=== PATIENT | female | born 1935 | race Caucasian/White ===

== ENCOUNTER 2020-12-28 13:39 | Inpatient (IN) | payer MEDICARE, OTHER ==
[~2020-12-28] VITALS: Ht 154.9 cm; Wt 104.0 kg
[~2020-12-28 13:39] MED LIST: BYSTOLIC; CEFD300C3 PO; DEXL60CA5 PO; INDO50CA PO; NABUMETONE; SPIR25TA3 PO
[2020-12-28] MEDS ORDERED: CALCIUM CARBONATE 500 MG (TUMS) TAB.CHEW PO PRN (14:15)
[2020-12-28] MEDS ORDERED: DOCUSATE SODIUM 100 MG (COLACE) CAP PO PRN (14:15)
[2020-12-28] MEDS ORDERED: diphenhydrAMINE 25 MG TAB (BENADRYL) PO PRN (14:15)
[2020-12-28] MEDS ORDERED: ACETAMINOPHEN 500 MG TAB (TYLENOL) PO PRN (14:15)
[2020-12-28] MEDS ORDERED: HYDROcodone/APAP 5 MG/325 MG (LORTAB) TAB PO PRN (14:15)
[2020-12-28] MEDS ORDERED: ONDANSETRON 4 MG/2 ML (SDV) Z0FRAN IVP PRN (14:15)
[2020-12-28] MEDS ORDERED: MELATONIN 3 MG TABLET PO PRN (14:15)
[2020-12-28] MEDS ORDERED: LOPERAMIDE 2 MG (IMODIUM) TABLET PO PRN (14:15)
[2020-12-28] MEDS ORDERED: dilTIAZem DRIP PRE-MIX 125 ML IV ONE (15:09)
[2020-12-28] MEDS ORDERED: ACETAMINOPHEN 325 MG TABLET PO PRN (15:15)
[2020-12-28] MEDS: dilTIAZem DRIP PRE-MIX 125 ML IV SCH (15:20)
[2020-12-28] MEDS: NS IV 1000 ML 1,000 ML IV SCH (15:23)
--- NOTE | 2020-12-28 15:46 | Diagnostic Imaging Report ---
INDICATION: Fever. EXAMINATION: Portable chest at 3:32 PM. Heart size and pulmonary vascularity are normal. Lungs are clear. There are no effusions or pneumothoraces. IMPRESSION: No acute abnormalities in the chest. Dictated by: Dictated on workstation # [id number]
[2020-12-28] MEDS ORDERED: RIVA20TA PO (16:05)
[2020-12-28] MEDS ORDERED: METO50TA7 PO (16:05)
[2020-12-28] MEDS ORDERED: DEXL60CA PO (16:05)
[2020-12-28] MEDS ORDERED: FERR-74 PO (16:05)
[2020-12-28] MEDS ORDERED: TORS20TA3 PO (16:05)
[2020-12-28] MEDS ORDERED: NITR0.3T7 SL (16:05)
[2020-12-28] MEDS ORDERED: LISI40TA9 PO (16:05)
[2020-12-28] MEDS ORDERED: ASPI-999 PO (16:05)
[2020-12-28 16:13] LABS: BASOPHILS % (AUTO) 0 % (0-10); EOSINOPHILS % (AUTO) 0 % (0-10); HEMATOCRIT 25 % (35-52); HEMOGLOBIN 7.4 g/dL (11.5-16.0); LYMPHOCYTES # (AUTO) 0.9 10^3/uL (1.0-4.0); LYMPHOCYTES % (AUTO) 7 % (12-44); MEAN CORPUSCULAR HEMOGLOBIN 27 pg (25-34); MEAN CORPUSCULAR HGB CONC 30 g/dL (32-36); MEAN CORPUSCULAR VOLUME 91 fL (80-99); MEAN PLATELET VOLUME 9.1 fL (9.0-12.2); MONOCYTES # (AUTO) 0.7 10^3/uL (0.0-1.0); MONOCYTES % (AUTO) 6 % (0-12); NEUTROPHILS # (AUTO) 11.2 10^3/uL (1.8-7.8); NEUTROPHILS % (AUTO) 86 % (42-75); PLATELET COUNT 376 10^3/uL (130-400)
--- NOTE | 2020-12-28 16:21 | History & Physical-Hospitalist ---
FORTINO JOHNSON MED STUDENT 12/28/20 1621: History of Present Illness HPI/Chief Complaint Sydni Wade is an 84 y.o. F with history of complicated GI history, PA with stents x2 (2014), and near-continuous Afib (diagnosed 2014) who presents with complaint of weakness. The patient's GI problems include diverticulosis bleeding requiring argon coagulation 06/2019, polypectomies in 2016, 2017, 2018, and 2019 (no colonoscopy since), Barett's Esophagus, Schatzski rings with esophageal dilations most recently in 06/2020, appendectomy, umbilical hernia rep air, hysterectomy, and bladder sling surgery. She reports 2 months of near- constant fevers, chills, nausea, diffuse cramping upper abdominal pain, abdominal bloating, SOB, 15 lbs weight loss, lightheadedness, and generalized weakness and fatigue. She notes having a UTI requiring 2 rounds of antibiotics a month ago. Sydni denies vomiting, constipation, diarrhea, denies black or bloody stools. She has never felt this way before. Sydni reports 1 bowel movement a day. She denies falls and denies palpitations. Sydni states she does not feel when she is in atrial fibrillation. She was evaluated at [facility], which found her in normocytic anemia, in Afib with RVR 130's, in acute on chronic renal failure, with BNP 3373, elevated ESR of 120, and small bilateral pleural effusions and a small pericardial effusion on CT scan. Her temperature was 99F in the ER. Source: patient Exam Limitations: no limitations Date Seen 12/28/20 Time Seen by a Provider: 15:40 Attending Physician Stephanie Kohli Benjamen H MD Referring Physician Date of Admission Dec 28, 2020 at 14:51 Home Medications & Allergies Home Medications Reviewed patient Home Medication Reconciliation performed by pharmacy medication reconciliations radiocommunications technician and/or nursing. Patients Allergies have been reviewed. Allergies Allergies Coded Allergies sulfamethoxazole (Verified Allergy, Unknown, 12/28/20) trimethoprim (Verified Allergy, Unknown, 12/28/20) Uncoded Allergies STATIN ( Allergy, Unknown, 12/28/20) Past Fozwfxd-Egeznf-Xrzkmu Hx Patient Social History Tobacco Use?: No Smoking Status: Never a Smoker Use of E-Cig and/or Vaping dev: No Substance use?: No Alcohol Use?: No Pt feels they are or have been: No Immunizations Up To Date Second COVID19 Vaccination Terry: "A FEW MONTHS AGO" Date of Pneumonia Vaccine: Jan 20, 2009 Current Status status: No status: No Advance Directives: No Communicates: Verbally Primary Language: Israeli Preferred Spoken Language: Israeli Is interpretation needed?: No Implanted or Applied Medical D: None Past Medical History Surgeries: Abdominal (periumbilical hernia repair. 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 No hx colon cancer.) Review of Systems Constitutional: chills, fever, weakness, weight loss EENTM: No hearing loss, No vision loss Respiratory: No cough; short of breath Cardiovascular: No chest pain, No palpitations Gastrointestinal: abdominal pain; No constipation, No diarrhea, No hematemesis; nausea; No vomiting Genitourinary: no symptoms reported Musculoskeletal: no symptoms reported Skin: No pruritus, No rash Psychiatric/Neurological: Other (lightheadedness) All Other Systems Reviewed Negative Unless Noted: Yes Physical Exam Physical Exam Vital Signs Vital Signs - First Documented 12/28/20 15:34 Pulse Ox 96 O2 Delivery Room Air Capillary Refill : Height, Weight, BMI Height: '" Weight: lbs. oz. kg; 41.46 BMI Method: General Appearance: No Apparent Distress, WD/WN HEENT: PERRL/EOMI, Moist Mucous Membranes Neck: Full Range of Motion, Normal Inspection Respiratory: Chest Non Tender, Lungs Clear, Normal Breath Sounds, No Accessory Muscle Use, No Respiratory Distress Cardiovascular: No No Murmur; Irregularly Irregular, Tachycardia Gastrointestinal: Normal Bowel Sounds, No Pulsatile Mass, Soft; No Guarding; Tenderness (diffuse mild to moderate tenderness, worst at the epigastrium) Neurologic/Psychiatric: Alert, Oriented x3, No Motor/Sensory Deficits, Normal Mood/Affect Skin: Normal Color, Warm/Dry; No Diaphoresis, No Rash Lymphatic: No Adenopathy Results Results/Procedures Labs Laboratory Tests 12/28/20 16:00 Patient resulted labs reviewed. Assessment/Plan Admission Diagnosis Assessment & Plan per medical student Afib with RVR -on diltiazem drip pericardial effusion, bilateral pleural effusions, heart failure Acute on Chronic renal failure, BUN/creatinine in the ER 22/05.97 -obtain Echo, repeat EKG. CXR. -therapeutics will likely involve a balancing act. Get cardiology on board normocytic anemia -hx diverticulosis with GI bleeds, hx recurrent polyps. multiple prior abdominal surgeries -recheck CBC, obtain type and screen in case transfusion needed -consult surgery for possible scope abdominal pain, minimal distention -no hernia or mass. LFTs and lipase within normal limits in the ER. -continue stool softeners. hemoccult test. fatigue, generalized weakness -continue to monitor for possible infection c/o SOB -not requiring O2. Likely due to anemia and arrhythmia. mild hyperkalemia, hypokalemia in ER of 5.2 and 131 respectively -recheck CMP, check Mag, Ca, Phosphorous COVID swabs, influenza, strep negative at ER. -is vaccinated against COVID STEPHANIE KOHLI DO 12/29/20 0537: History of Present Illness HPI/Chief Complaint Chief complaint: Fever of unknown origin with weakness with abdominal pain History of present illness: This is an 85-year-old white female clinic patient of counts include 234 beds at the [facility] who presented to the [facility] with severe weakness and fever. Covid was negative. No evidence of UTI with a recent history of that. Atrial fibrillation with rapid ventricular response requiring Cardizem drip upon arrival to the ICU. Elevated D-dimer will require VQ scan since CT angiogram cannot be completed due to elevated creatinine. Patient has a lot of complex medical problems and at age 85 she has high risk for decompensation. Her daughter is at the bedside. Cardiology will be consulted. Dr. Alejandro consulted placed on proton pump inhibitor and will transfuse if necessary. Source: patient, family, old records Exam Limitations: no limitations Past Vrfrjoh-Jisxzg-Qrbwhl Hx Patient Social History Marrital Status: single Employed/Student: retired Smoking Status: Never a Smoker Past Medical History Atrial Fibrillation, Coronary Artery Disease, Heart Attack, Hypertension Madera's Esophagus, Gastrointestinal Bleed, Diverticulosis Review of Systems Constitutional: see HPI, fever, weakness, weight loss Respiratory: short of breath Gastrointestinal: abdominal pain, loss of appetite Physical Exam Physical Exam General Appearance: No Apparent Distress, Chronically ill, Obese Eyes: Right Eye Normal Inspection, Right Eye PERRL HEENT: PERRL/EOMI, Normal ENT Inspection, Pharynx Normal, Moist Mucous Membranes Neck: Full Range of Motion, Normal Inspection, Non Tender Respiratory: Chest Non Tender, Lungs Clear, Normal Breath Sounds, No Accessory Muscle Use, No Respiratory Distress Cardiovascular: No Edema, No Gallop, No JVD, No Murmur, Normal Peripheral Pulses, Irregularly Irregular, Tachycardia Gastrointestinal: Normal Bowel Sounds, No Organomegaly, No Pulsatile Mass, Soft, Tenderness (diffuse mild to moderate tenderness, worst at the epigastrium) Back: Normal Inspection, No CVA Tenderness, No Vertebral Tenderness Extremity: Normal Capillary Refill, Normal Inspection, Normal Range of Motion, Non Tender, No Calf Tenderness, No Pedal Edema Neurologic/Psychiatric: Alert, Oriented x3, No Motor/Sensory Deficits, Normal Mood/Affect Skin: Normal Color, Warm/Dry Lymphatic: No Adenopathy Assessment/Plan Admission Diagnosis Assessment: Fever of unknown origin Abdominal pain Severe anemia history of GI bleeds Transfusion during current hospitalization Atrial fibrillation with rapid ventricular response Bilateral pleural effusions Small pericardial effusion Plan: Empiric antibiotics after coleman culture Cardiology consult Cardizem drip Transfusion Proton pump inhibitor Dr. Alejandro consult Admission Status: Inpatient Order (span 2 midnights) Reason for Inpatient Admission: Critical illness Supervisory-Addendum Brief Verification & Attestation Participated in pt care: history, MDM, physical Personally performed: exam, history, MDM, supervision of care Care discussed with: Medical Student Procedures: n/a Results interpretation: Verified all documentation Verification and Attestation of Medical Student E/M Service A medical student performed and documented this service in my presence. I reviewed and verified all information documented by the medical student and made modifications to such information, when appropriate. I personally performed the physical exam and medical decision making. Stephanie Kohli, Dec 29, 2020,05:37 FORTINO JOHNSON MED STUDENT Dec 28, 2020 16:21 STEPHANIE KOHLI DO Dec 29, 2020 05:37
[2020-12-28 16:22] LABS: ALBUMIN 3.1 GM/DL (3.2-4.5); POTASSIUM 4.8 MMOL/L (3.6-5.0)
[2020-12-28 16:24] LABS: CALCIUM 9.3 MG/DL (8.5-10.1)
[2020-12-28 16:27] LABS: ANISOCYTOSIS SLIGHT; BILIRUBIN,TOTAL 0.5 MG/DL (0.1-1.0); HYPOCHROMASIA MODERATE; LYMPHOCYTES % (MANUAL) 7 %; MICROCYTOSIS SLIGHT; MONOCYTES % (MANUAL) 2 %; NEUTROPHILS % (MANUAL) 91 %
[2020-12-28 16:29] LABS: CREATININE SERUM 1.62 MG/DL (0.60-1.30)
[2020-12-28 17:06] LABS: BILIRUBIN,URINE NEGATIVE (NEGATIVE); CLARITY,URINE CLEAR; COLOR,URINE YELLOW; GLUCOSE, URINE (UA) NEGATIVE (NEGATIVE); KETONES,URINE NEGATIVE (NEGATIVE); LEUKOCYTE ESTERASE ,URINE NEGATIVE (NEGATIVE); NITRITE,URINE NEGATIVE (NEGATIVE); PROTEIN,URINE TRACE (NEGATIVE)
--- NOTE | 2020-12-28 17:21 | Consultation-Cardiology ---
HPI-Cardiology Cardiology Consultation: Date of Consultation 12/28/2020 Date of Admission 12/28/2020 Attending Physician Stephanie Gonzalez DO Admitting Physician Rahul Gonzales MD Consulting Physician SARAH FRANCO JR, MD HPI: Time Seen by a Provider: 17:14 Chief Complaint: Reason for consultation: Atrial fibrillation. At the pleasure of seeing Sydni in the intensive care unit at [facility] in [place], [place] today. She has a history of coronary artery disease with 2 previous coronary stents in unknown vessels, probable permanent atrial fibrillation, hypertension, hyperlipidemia, Madera's esophagus, history of gastric ulcers with hemorrhaging, and obesity. For the past few weeks she has had intermittent fevers and chills. She has had a dry cough. She has gradually become more and more fatigued. She has also had dyspnea on exertion. Today she finally decided she should go to the emergency room. She presented to the emergency room and [place]. She was found to be in atrial fibrillation with a rapid ventricular rate. She also underwent a chest CT that showed a small pe ricardial effusion. She was then transferred to our hospital for further evaluation and treatment. When she arrived in the intensive care unit she had tachycardia. I then placed the patient on intravenous diltiazem which is currently running at 15 mg/h. She denies chest discomfort. She has had some lightheaded spells but denies any syncope. Her main complaint at this point time is epigastric discomfort. She denies any dark stool or blood in the stool. She denies vomiting. She denies paroxysmal nocturnal dyspnea, orthopnea, palpitations, or ankle edema. Because of the atrial fibrillation, a cardiology consultation was requested. She normally follows with a coat fitter in [place], [place]. Certain portions of this document may have been dictated utilizing voice re cognition technology. Inherent to this technology, typographical and grammatical errors may exist. As much as I am diligent to identify and correct these mistakes, some errors may remain in the document. Review of Systems-Cardiology Review of Systems Other comments Review of 10 organ systems is as per the history of present illness, otherwise negative. All Other Systems Reviewed Negative Unless Noted: Yes WLV-Frupka-Fryoyk Hx Patient Social History Smoking Status: Never a Smoker Have you traveled recently?: No Alcohol Use?: No Pt feels they are or have been: No Immunizations Up To Date Date of Pneumonia Vaccine: Jan 20, 2009 Past Medical History PMH As described under Assessment. Family Medical History Family Medical History: The patient does not know of any family history of premature coronary artery disease. Allergies and Home Medications Allergies Coded Allergies: sulfamethoxazole (Verified Allergy, Unknown, 12/28/20) trimethoprim (Verified Allergy, Unknown, 12/28/20) Uncoded Allergies: STATIN (Allergy, Unknown, 12/28/20) Patient Home Medication List Home Medication List Reviewed: Yes Aspirin (Aspirin) 81 Mg Tab.chew, 81 MG PO DAILY, (Reported) Entered as Reported by: GRETTA CNONER on 12/28/201604 Last Action: Reviewed Dexlansoprazole (Dexilant) 60 Mg , 60 MG PO DAILY, (Reported) Entered as Reported by: GRETTA CONNER on 12/28/201604 Last Action: Reviewed Ferrous Sulfate (Ferrous Sulfate) 325 Mg Tablet, 325 MG PO 1800, (Reported) Entered as Reported by: GRETTA CONNER on 12/28/201604 Last Action: Reviewed Lisinopril (Lisinopril) 40 Mg Tablet, 40 MG PO BID, (Reported) Entered as Reported by: GRETTA CONNER on 12/28/201604 Last Action: Reviewed Metoprolol Succinate (Metoprolol Succinate) 50 Mg Tab.er.24h, 50 MG PO 1800, (Reported) Entered as Reported by: GRETTA CONNER on 12/28/201604 Last Action: Reviewed Nitroglycerin (Nitroglycerin) 0.3 Mg Tab.subl, 0.3 MG SL UD PRN for CHEST PAIN (ANGINA), (Reported) Entered as Reported by: GRETTA CONNER on 12/28/201604 Last Action: Reviewed Rivaroxaban (Xarelto) 20 Mg Tablet, 20 MG PO 1800, (Reported) Entered as Reported by: GRETTA CONNER on 12/28/201604 Last Action: Reviewed Torsemide (Torsemide) 20 Mg Tablet, 20 MG PO DAILY, (Reported) Entered as Reported by: GRETTA CONNER on 12/28/201604 Last Action: Reviewed Discontinued Medications Cefdinir (Cefdinir) 300 Mg Capsule, 1 EACH PO BID Discontinued Reason: No Longer Taking Prescribed by: LUCILA OROSCO on 06/21/12 1446 Last Action: Discontinued Dexlansoprazole (Dexilant) 60 Mg Cap., 60 MG PO, (Reported) Discontinued Reason: No Longer Taking Entered as Reported by: FEDERICO PETTIT on 06/21/12 1118 Last Action: Discontinued Indomethacin (Indocin 50 Mg Cap) 50 Mg Capsule, 1 EACH PO TID, (Reported) Discontinued Reason: No Longer Taking Entered as Reported by: FEDERICO PETTIT on 06/21/12 1117 Last Action: Discontinued Spironolactone (Spironolactone) 25 Mg Tablet, 25 MG PO, (Reported) Discontinued Reason: No Longer Taking Entered as Reported by: FEDERICO PETTIT on 06/21/12 111 Last Action: Discontinued [Bystolic] , (Reported) Discontinued Reason: No Longer Taking Entered as Reported by: FEDERICO PETTIT on 06/21/12 111 Last Action: Discontinued [Nabumetone] , (Reported) Discontinued Reason: No Longer Taking Entered as Reported by: FEDERICO PETTIT on 06/21/12 1120 Last Action: Discontinued Exam Vital Signs Vital Signs Date Time Temp Pulse Resp B/P (MAP) Pulse Ox O2 Delivery O2 Flow Rate FiO2 12/28/20 17:00 105 24 111/59 95 Room Air Physical Exam General: Alert. No acute distress. Well nourished and appears stated age. She is obese. Eye: Extraocular movements are intact. Conjunctivae are clear. There are no xanthelasma. HENT: Normocephalic. Atraumatic. Carotid pulsations 2/2 without bruits. Neck: Jugular venous pressure does not appear elevated. No thyromegaly appreciated. Respiratory: Lungs are clear to auscultation. Respirations are non-labored. Breath sounds are equal. Symmetrical chest wall expansion. Cardiovascular: Tachycardia with irregular rhythm. No murmur. No gallop. Point of maximal impulse is not appear displaced. Good pulses equal in all extremities. No edema. Gastrointestinal: Soft. Normal bowel sounds. Skin: Skin turgor is normal. There is no pallor. Musculoskeletal: No kyphosis or scoliosis appreciated. Neurologic: Alert and oriented to person, place, time. Cranial nerves 3-12 appear grossly intact. The patient has good motor tone strength in the upper and lower extremities bilaterally. Psychiatric: Cooperative. Appropriate mood & affect. Labs Laboratory Tests Test 12/28/20 14:05 12/28/20 16:00 12/28/20 16:50 Range/Units B-Type Natriuretic Peptide 177.8 H <100.0 PG/ML White Blood Count 13.0 H 4.3-11.0 10^3/uL Red Blood Count 2.70 L 3.80-5.11 10^6/uL Hemoglobin 7.4 L 11.5-16.0 g/dL Hematocrit 25 L 35-52 % Mean Corpuscular Volume 91 80-99 fL Mean Corpuscular Hemoglobin 27 25-34 pg Mean Corpuscular Hemoglobin Concent 30 L 32-36 g/dL Red Cell Distribution Width 17.1 H 10.0-14.5 % Platelet Count 376 130-400 10^3/uL Mean Platelet Volume 9.1 9.0-12.2 fL Immature Granulocyte % (Auto) 1 % Neutrophils (%) (Auto) 86 H 42-75 % Lymphocytes (%) (Auto) 7 L 12-44 % Monocytes (%) (Auto) 6 0-12 % Eosinophils (%) (Auto) 0 0-10 % Basophils (%) (Auto) 0 0-10 % Neutrophils # (Auto) 11.2 H 1.8-7.8 10^3/uL Lymphocytes # (Auto) 0.9 L 1.0-4.0 10^3/uL Monocytes # (Auto) 0.7 0.0-1.0 10^3/uL Eosinophils # (Auto) 0.0 0.0-0.3 10^3/uL Basophils # (Auto) 0.0 0.0-0.1 10^3/uL Immature Granulocyte # (Auto) 0.1 0.0-0.1 10^3/uL Neutrophils % (Manual) 91 % Lymphocytes % (Manual) 7 % Monocytes % (Manual) 2 % Hypochromasia MODERATE Anisocytosis SLIGHT Microcytosis SLIGHT D-Dimer 16.02 H 0.00-0.49 UG/ML Sodium Level 131 L 135-145 MMOL/L Potassium Level 4.8 3.6-5.0 MMOL/L Chloride Level 99 98-107 MMOL/L Carbon Dioxide Level 21 21-32 MMOL/L Anion Gap 11 5-14 MMOL/L Blood Urea Nitrogen 26 H 7-18 MG/DL Creatinine 1.62 H 0.60-1.30 MG/DL Estimat Glomerular Filtration Rate 30 BUN/Creatinine Ratio 16 Glucose Level 118 H 70-105 MG/DL Lactic Acid Level 0.73 0.50-2.00 MMOL/L Calcium Level 9.3 8.5-10.1 MG/DL Corrected Calcium 10.0 8.5-10.1 MG/DL Total Bilirubin 0.5 0.1-1.0 MG/DL Aspartate Amino Transf (AST/SGOT) 22 5-34 U/L Alanine Aminotransferase (ALT/SGPT) 16 0-55 U/L Alkaline Phosphatase 85 40-136 U/L Total Protein 7.0 6.4-8.2 GM/DL Albumin 3.1 L 3.2-4.5 GM/DL Procalcitonin 0.23 H <0.10 NG/ML Radiology Echocardiogram showed normal left ventricular chamber size with mild concentric left ventricular hypertrophy and normal left ventricular systolic function with an estimated ejection fraction of 65-70%. The diastolic function was indeterminate. There was at least mild right ventricular dysfunction. The left atrium was moderate to severely dilated. There was mild mitral regurgitation. There was moderate aortic valve sclerosis without stenosis. There was moderate to severe tricuspid regurgitation. The estimated pulmonary artery pressure was 49 mmHg. There was a trivial pericardial effusion. ECG Impression ECG Comment Atrial fibrillation with a rapid ventricular rate of [address]-T wave changes. Diagnosis/Problems Diagnosis/Problems (1) Permanent atrial fibrillation Assessment & Plan: From her description, she has had atrial fibrillation for at least the past several years. She does not recall ever having undergone a cardioversion or being on antiarrhythmic drug. Her left atrium is moderate to severely dilated. I recommend she continue on rivaroxaban for stroke prophylaxis. I will resume the patient's metoprolol succinate. Once we get her back on the metoprolol, we can try to wean down the diltiazem. Some of her tachycardia may be compensatory due to her fever. (2) Pulmonary hypertension Assessment & Plan: Etiology unclear. Some of this could be related to her m orbid obesity. In addition, she has an elevated D-dimer level which raises a concern for pulmonary embolism although she has been taking rivaroxaban which should help prevent deep venous thrombosis and pulmonary emboli. The pulmonary hypertension will need to be followed longitudinally by her regular outpatient coat fitter at the outside facility. (3) Coronary artery disease without angina pectoris Assessment & Plan: She is not having any angina at this point in time and there are no ischemic changes on her electrocardiogram. Given her acute on chronic anemia coupled with previous upper gastrointestinal hemorrhage, I would suggest that the patient stop taking aspirin and just remain on rivaroxaban. I will resume the beta-ileana. I will order a lipid panel for the morning. Given her previous coronary stents, she would likely benefit from at least a low-dose of statin medication. (4) Primary hypertension Assessment & Plan: Blood pressure is presently controlled on intravenous diltiazem. I will resume the metoprolol and attempt to wean off the diltiazem. If her blood pressure becomes elevated, then I would resume the patient's outpatient dose of lisinopril. (5) Mixed hyperlipidemia Assessment & Plan: She does not appear to be taking statin medication at home. I have ordered a fasting lipid profile for the morning. (6) Anemia Assessment & Plan: As above, given the acute on chronic anemia coupled with previous gastrointestinal hemorrhages, I would suggest stopping her low strength aspirin and discontinue rivaroxaban for the atrial fibrillation and coronary artery disease. (7) Morbid obesity Assessment & Plan: She needs to work on weight loss. SARAH FRANCO JR, MD Dec 28, 2020 17:21
[2020-12-28 17:27] LABS: BACTERIA,URINE NEGATIVE /HPF; RBC,URINE 0-2 /HPF
[2020-12-28] MEDS ORDERED: PANTOPRAZOLE 40 MG (PROTONIX) VIAL IV ONE (18:00)
[2020-12-28] MEDS ORDERED: meTOproloL SUCCINATE 50 MG (TOPROL XL) TAB PO ONE (18:10)
[2020-12-28] MEDS ORDERED: PANTOPRAZOLE 40 MG (PROTONIX) VIAL ONE (18:10)
[2020-12-28] MEDS: CEFEPIME INJECTION 1,000 MG in WATER (STERILE) FOR INJECTION 10 ML IV SCH (18:12)
--- NOTE | 2020-12-28 18:12 | Tele-ICU Progress Note ---
Progress Note Video assessment done , Hemodynamically stable Available charting reviewed NO TELE-ICU CONSULT REQUESTED CONTINUE TO MONITOR PER USUAL TELE-ICU PROTOCOL No need for Tele-ICU interventions Plans as delineated by bedside physicians / consultants a fib - RVR- on cardizem gtt, eliquis anemia elv PCT - empiric abx CKD CAD pulm HTN Focused Exam Lactate Level 12/28/20 16:00: Lactic Acid Level 0.73 Height, Weight, BMI Height: '" Weight: lbs. oz. kg; 41.46 BMI Method: Lactic Acid Level Laboratory Tests Test 12/28/20 16:00 Lactic Acid Level 0.73 MMOL/L (0.50-2.00) PATTI RAPP MD Dec 28, 2020 18:12
[2020-12-28] MEDS: meTOproloL SUCCINATE 50 MG (TOPROL XL) TAB PO SCH (18:13)
[2020-12-28] MEDS ORDERED: APIXABAN 2.5 MG (ELIQUIS) TABLET PO SCH ×2 (21:00)
[2020-12-28] MEDS: LINEZOLID IVPB 300 ML IV SCH (21:08)
[2020-12-28] MEDS: PANTOPRAZOLE 40 MG (PROTONIX) VIAL IV SCH (21:08)
[2020-12-28] MEDS: SENNA W/DOCUSATE (SENOKOT S) TABLET PO SCH (21:08)
[2020-12-28] MEDS: polyethylene glycoL POWDER 17 GM (MIRALAX) PACK PO SCH (21:08)
[2020-12-28 21:59] LABS: HEMATOCRIT 21 % (35-52); MEAN CORPUSCULAR HEMOGLOBIN 27 pg (25-34); MEAN CORPUSCULAR HGB CONC 30 g/dL (32-36); MEAN CORPUSCULAR VOLUME 91 fL (80-99); NEUTROPHILS % (AUTO) 81 % (42-75); PLATELET COUNT 343 10^3/uL (130-400); WHITE BLOOD COUNT 10.2 10^3/uL (4.3-11.0)
[2020-12-28 22:00] LABS: BASOPHILS % (AUTO) 0 % (0-10); EOSINOPHILS # (AUTO) 0.1 10^3/uL (0.0-0.3); EOSINOPHILS % (AUTO) 1 % (0-10); LYMPHOCYTES # (AUTO) 1.1 10^3/uL (1.0-4.0); LYMPHOCYTES % (AUTO) 11 % (12-44); MONOCYTES # (AUTO) 0.6 10^3/uL (0.0-1.0); MONOCYTES % (AUTO) 6 % (0-12); NEUTROPHILS # (AUTO) 8.3 10^3/uL (1.8-7.8)
[2020-12-28 22:03] LABS: HEMOGLOBIN 6.4 g/dL (11.5-16.0)
--- NOTE | 2020-12-28 22:24 | Tele-ICU Progress Note ---
Progress Note hgb 6.4, will transfuse 1 unit PRBs over 3 hours and check post transfusion H/H Focused Exam Lactate Level 12/28/20 16:00: Lactic Acid Level 0.73 Height, Weight, BMI Height: '" Weight: lbs. oz. kg; 41.46 BMI Method: MARCIO LAMB MD Dec 28, 2020 22:24
[2020-12-28 23:21] LABS: HEMATOCRIT 22 % (35-52); MEAN CORPUSCULAR HGB CONC 30 g/dL (32-36); MEAN CORPUSCULAR VOLUME 92 fL (80-99); MEAN PLATELET VOLUME 9.3 fL (9.0-12.2); PLATELET COUNT 344 10^3/uL (130-400); WHITE BLOOD COUNT 9.8 10^3/uL (4.3-11.0)
[2020-12-28 23:26] LABS: HEMOGLOBIN 6.7 g/dL (11.5-16.0); MEAN CORPUSCULAR HEMOGLOBIN 27 pg (25-34)
[2020-12-29] MEDS ORDERED: NS IV 500 ML 500 ML IV SCH
[2020-12-29 00:34] VITALS: BP 109/65
[2020-12-29] MEDS: dilTIAZem DRIP PRE-MIX 125 ML IV SCH (00:36)
[2020-12-29] MEDS: ALPRAZolam 0.25 MG (XANAX) TAB PO PRN ×2 (00:44→21:16)
[2020-12-29 00:49] VITALS: BP 116/60
[2020-12-29 03:28] VITALS: BP 96/61
[2020-12-29] MEDS: NS IV 1000 ML 1,000 ML IV SCH (03:29)
[2020-12-29] MEDS: CEFEPIME INJECTION 1,000 MG in WATER (STERILE) FOR INJECTION 10 ML IV SCH ×3 (05:43→23:29)
[2020-12-29 05:58] LABS: BASOPHILS % (AUTO) 0 % (0-10); EOSINOPHILS # (AUTO) 0.1 10^3/uL (0.0-0.3); EOSINOPHILS % (AUTO) 2 % (0-10); HEMATOCRIT 27 % (35-52); HEMOGLOBIN 7.9 g/dL (11.5-16.0); LYMPHOCYTES % (AUTO) 13 % (12-44); MEAN CORPUSCULAR HEMOGLOBIN 28 pg (25-34); MEAN CORPUSCULAR HGB CONC 29 g/dL (32-36); MEAN CORPUSCULAR VOLUME 94 fL (80-99); MEAN PLATELET VOLUME 9.3 fL (9.0-12.2); MONOCYTES # (AUTO) 0.7 10^3/uL (0.0-1.0); MONOCYTES % (AUTO) 9 % (0-12); NEUTROPHILS # (AUTO) 5.9 10^3/uL (1.8-7.8); NEUTROPHILS % (AUTO) 75 % (42-75); PLATELET COUNT 330 10^3/uL (130-400); WHITE BLOOD COUNT 7.8 10^3/uL (4.3-11.0)
[2020-12-29 06:11] LABS: POTASSIUM 4.7 MMOL/L (3.6-5.0)
[2020-12-29 06:13] LABS: CALCIUM 9.1 MG/DL (8.5-10.1)
[2020-12-29 06:17] LABS: CREATININE SERUM 1.49 MG/DL (0.60-1.30); PHOSPHORUS 4.2 MG/DL (2.3-4.7)
[2020-12-29 06:20] LABS: MAGNESIUM 2.3 MG/DL (1.6-2.4)
--- NOTE | 2020-12-29 07:24 | Consultation - Surgery ---
DESIRE WALLER 12/29/20 0724: History of Present Illness History of Present Illness Patient Consulted On(kelin/time) 12/29/20 07:10 Date Seen by Provider: Dec 29, 2020 Time Seen by Provider: 07:10 Reason for Visit: Weakness and Fever History of Present Illness 85yo WF consulted by surgery for potential EGD/Colonoscopy due to possible GI bleed given current anemia and GI history (GERD w/ Barrets esophagus, GAVE/Watermelon Stomach, diverticulosis with GI Bleeds, polypectomy). Pt has also had a hysterectomy. Pt reports symptoms yesterday of subjective fevers, chills, and night sweats that resolved. Currently reports nausea, fatigue, cough, SOB, weight loss (10lbs over past 2mo), palpitations, epigastric pain that radiates towards chest (GERD). Denies any vomiting, diarrhea, or sore throat. Pt reports nausea leading to loss of appetite and unable to eat solids, but liquids are okay. Last bowel movement 2 days ago was nonbloody and normal color. Last night, pt was transfused 1 PRBC, PPI reduced symptoms, and blood thinner was held since. Allergies and Home Medications Allergies Coded Allergies: sulfamethoxazole (Verified Allergy, Unknown, 12/28/20) trimethoprim (Verified Allergy, Unknown, 12/28/20) Uncoded Allergies: STATIN (Allergy, Unknown, 12/28/20) Patient Home Medication List Aspirin (Aspirin) 81 Mg Tab.chew, 81 MG PO DAILY, (Reported) Entered as Reported by: GRETTA CONNER on 12/28/201604 Last Action: Reviewed Dexlansoprazole (Dexilant) 60 Mg , 60 MG PO DAILY, (Reported) Entered as Reported by: GRETTA CONNER on 12/28/201604 Last Action: Reviewed Ferrous Sulfate (Ferrous Sulfate) 325 Mg Tablet, 325 MG PO 1800, (Reported) Entered as Reported by: GRETTA CONNER on 12/28/201604 Last Action: Reviewed Lisinopril (Lisinopril) 40 Mg Tablet, 40 MG PO BID, (Reported) Entered as Reported by: GRETTA CONNER on 12/28/201604 Last Action: Reviewed Metoprolol Succinate (Metoprolol Succinate) 50 Mg Tab.er.24h, 50 MG PO 1800, (Reported) Entered as Reported by: GRETTA CONNER on 12/28/201604 Last Action: Reviewed Nitroglycerin (Nitroglycerin) 0.3 Mg Tab.subl, 0.3 MG SL UD PRN for CHEST PAIN (ANGINA), (Reported) Entered as Reported by: GRETTA CONNER on 12/28/201604 Last Action: Reviewed Rivaroxaban (Xarelto) 20 Mg Tablet, 20 MG PO 1800, (Reported) Entered as Reported by: GRETTA CONNER on 12/28/201604 Last Action: Reviewed Torsemide (Torsemide) 20 Mg Tablet, 20 MG PO DAILY, (Reported) Entered as Reported by: GRETTA CONNER on 12/28/201604 Last Action: Reviewed Discontinued Medications Cefdinir (Cefdinir) 300 Mg Capsule, 1 EACH PO BID Discontinued Reason: No Longer Taking Prescribed by: LCUILA OROSCO on 06/21/12 1446 Last Action: Discontinued Dexlansoprazole (Dexilant) 60 Mg Cap., 60 MG PO, (Reported) Discontinued Reason: No Longer Taking Entered as Reported by: FEDERICO PETTIT on 06/21/121117 Last Action: Discontinued Indomethacin (Indocin 50 Mg Cap) 50 Mg Capsule, 1 EACH PO TID, (Reported) Discontinued Reason: No Longer Taking Entered as Reported by: FEDERICO PETTIT on 06/21/12 111 Last Action: Discontinued Spironolactone (Spironolactone) 25 Mg Tablet, 25 MG PO, (Reported) Discontinued Reason: No Longer Taking Entered as Reported by: FEDERICO PETTIT on 06/21/12 111 Last Action: Discontinued [Bystolic] , (Reported) Discontinued Reason: No Longer Taking Entered as Reported by: FEDERICO PETTIT on 06/21/121117 Last Action: Discontinued [Nabumetone] , (Reported) Discontinued Reason: No Longer Taking Entered as Reported by: FEDERICO PETTIT on 06/21/12 112 Last Action: Discontinued Past Uvjqzaz-Unicbm-Rhriip Hx Patient Social History Smoking Status: Never a Smoker Alcohol Use?: No Have you traveled recently?: No Immunizations Up To Date Date of Pneumonia Vaccine: Jan 20, 2009 Surgeries Surgeries: Abdominal (periumbilical hernia repair. Urethral sling.), Appendectomy, Coronary Stent (x2), Hysterectomy Cardiovascular Cardiac Disorders: Atrial Fibrillation, Coronary Artery Disease, Heart Attack, Hypertension Reproductive System [facility] History: Hysterectomy Gastrointestinal Gastrointestinal Disorders: [place]'s Esophagus, Gastrointestinal Bleed, Di verticulosis Musculoskeletal Musculoskeletal Disorders: Osteoporosis, Chronic Back Pain Cancer Cancer: Colon (annual polypectomies on colonoscopies 4842-1326. No hx colon cancer.) Review of Systems-General Constitutional: chills; No fever; weight loss (10lbs over past 2mo) EENTM: No blurred vision, No vision loss, No throat pain Respiratory: cough, short of breath; No wheezing Cardiovascular: chest pain; No edema; palpitations Gastrointestinal: abdominal pain (Epigastric); No diarrhea; loss of appetite; No melena; nausea; No vomiting Genitourinary: No dysuria, No frequency, No incontinence Musculoskeletal: no symptoms reported Physical Exam-General Problems Physical Exam Vital Signs Vital Signs - First Documented 12/28/20 12/28/20 14:54 15:00 Temp 37.1 Pulse 150 Resp 28 B/P (MAP) 127/70 Pulse Ox 97 O2 Delivery Room Air Capillary Refill : HEENT: PERRL/EOMI Neck: supple, normal inspection Respiratory: chest non-tender, lungs clear, normal breath sounds, no respiratory distress, no accessory muscle use Cardiovascular: normal peripheral pulses; No regular rate, rhythm; no edema, no murmur Gastrointestinal: No soft (epigastric region hard); abnormal bowel sounds, distended, tenderness (eipgastric region) Extremities: non-tender, no pedal edema, no calf tenderness, normal capillary refill Neurologic/Psychiatric: alert, normal mood/affect, oriented x 3 Skin: normal color, warm/dry Data Review Labs Laboratory Tests 12/28/20 14:05: B-Type Natriuretic Peptide 177.8H 12/28/20 16:00: White Blood Count 13.0H, Red Blood Count 2.70L, Hemoglobin 7.4L, Hematocrit 25L, Mean Corpuscular Volume 91, Mean Corpuscular Hemoglobin 27, Mean Corpuscular Hemoglobin Concent 30L, Red Cell Distribution Width 17.1H, Platelet Count 376, Mean Platelet Volume 9.1, Immature Granulocyte % (Auto) 1, Neutrophils (%) (Auto) 86H, Lymphocytes (%) (Auto) 7L, Monocytes (%) (Auto) 6, Eosinophils (%) (Auto) 0, Basophils (%) (Auto) 0, Neutrophils # (Auto) 11.2H, Lymphocytes # (Auto) 0.9L, Monocytes # (Auto) 0.7, Eosinophils # (Auto) 0.0, Basophils # (Auto) 0.0, Immature Granulocyte # (Auto) 0.1, Neutrophils % (Manual) 91, Lymphocytes % (Manual) 7, Monocytes % (Manual) 2, Hypochromasia MODERATE, Anisocytosis SLIGHT, Microcytosis SLIGHT, D-Dimer 16.02H, Sodium Level 131L, Potassium Level 4.8, Chloride Level 99, Carbon Dioxide Level 21, Anion Gap 11, Blood Urea Nitrogen 26H, Creatinine 1.62H, Estimat Glomerular Filtration Rate 30, BUN/Creatinine Ratio 16, Glucose Level 118H, Lactic Acid Level 0.73, Calcium Level 9.3, Corrected Calcium 10.0, Total Bilirubin 0.5, Aspartate Amino Transf (AST/SGOT) 22, Alanine Aminotransferase (ALT/SGPT) 16, Alkaline Phosphatase 85, Total Protein 7.0, Albumin 3.1L, Procalcitonin 0.23H 12/28/20 16:50: Urine Color YELLOW, Urine Clarity CLEAR, Urine pH 6.0, Urine Specific [place] 1.015L, Urine Protein TRACEH, Urine Glucose (UA) NEGATIVE, Urine Ketones NEGATIVE, Urine Nitrite NEGATIVE, Urine Bilirubin NEGATIVE, Urine Urobilinogen 0.2, Urine Leukocyte Esterase NEGATIVE, Urine RBC (Auto) TRACE-I, Urine RBC 0-2, Urine WBC NONE, Urine Squamous Epithelial Cells 2-5, Urine Crystals NONE, Urine Bacteria NEGATIVE, Urine Casts NONE, Urine Mucus NEGATIVE, Urine Culture Indicated NO 12/28/20 21:54: White Blood Count 10.2, Red Blood Count 2.36L, Hemoglobin 6.4*L, Hematocrit 21L, Mean Corpuscular Volume 91, Mean Corpuscular Hemoglobin 27, Mean Corpuscular Hemoglobin Concent 30L, Red Cell Distribution Width 17.2H, Platelet Count 343, Mean Platelet Volume 9.0, Immature Granulocyte % (Auto) 1, Neutrophils (%) (Auto) 81H, Lymphocytes (%) (Auto) 11L, Monocytes (%) (Auto) 6, Eosinophils (%) (Auto) 1, Basophils (%) (Auto) 0, Neutrophils # (Auto) 8.3H, Lymphocytes # (Auto) 1.1, Monocytes # (Auto) 0.6, Eosinophils # (Auto) 0.1, Basophils # (Auto) 0.0, Immature Granulocyte # (Auto) 0.1 12/28/20 22:45: White Blood Count 9.8, Red Blood Count 2.44L, Hemoglobin 6.7*L, Hematocrit 22L, Mean Corpuscular Volume 92, Mean Corpuscular Hemoglobin 27, Mean Corpuscular Hemoglobin Concent 30L, Red Cell Distribution Width 17.1H, Platelet Count 344, Mean Platelet Volume 9.3 12/29/20 05:30: White Blood Count 7.8, Red Blood Count 2.85L, Hemoglobin 7.9L, Hematocrit 27L, Mean Corpuscular Volume 94, Mean Corpuscular Hemoglobin 28, Mean Corpuscular Hemoglobin Concent 29L, Red Cell Distribution Width 16.7H, Platelet Count 330, Mean Platelet Volume 9.3, Immature Granulocyte % (Auto) 1, Neutrophils (%) (Auto) 75, Lymphocytes (%) (Auto) 13, Monocytes (%) (Auto) 9, Eosinophils (%) (Auto) 2, Basophils (%) (Auto) 0, Neutrophils # (Auto) 5.9, Lymphocytes # (Auto) 1.0, Monocytes # (Auto) 0.7, Eosinophils # (Auto) 0.1, Basophils # (Auto) 0.0, Immature Granulocyte # (Auto) 0.1, Sodium Level 133L, Potassium Level 4.7, Chloride Level 103, Carbon Dioxide Level 21, Anion Gap 9, Blood Urea Nitrogen 25H, Creatinine 1.49H, Estimat Glomerular Filtration Rate 33, BUN/Creatinine Ratio 17, Glucose Level 98, Calcium Level 9.1, Phosphorus Level 4.2, Magnesium Level 2.3, Triglycerides Level 73, Cholesterol Level 139, LDL Cholesterol Direct 109, VLDL Cholesterol 15, HDL Cholesterol 24L Assessment/Plan Assessment/Plan Assessment/Plan Fever of unknown origin Epigastric Abdominal pain Severe anemia with history of GI bleeds, acutely resolved Transfusion during current hospitalization Atrial fibrillation with rapid ventricular response Bilateral pleural effusions Small pericardial effusion EGD/Colonoscopy due to extensive GI history and possible bleed Continue to hold blood thinners Remain NPO ELZBIETA FARRELL DO 12/29/20 0673: History of Present Illness History of Present Illness History of Present Illness Consult requested by Dr. Gonzalez for anemia Patient is a 85-year-old female states that she is been ill for approximately 2 months. Just had not been feeling well. Having episodes of epigastric abdominal pain. This comes and goes. Nothing really seems to make it better that she knows of. Nothing really seems to make it worse. Her pain is in the epigastric area no radiation of the pain. Patient has history of watermelon stomach/gave and also with history of [place]'s esophagus. Patient states that she has been nauseated. She is not had any emesis. Patient has difficulty keeping food down over the last couple months. Nothing seems to taste good either. She was found to be anemic and had to be transfused packed red blood cells. Her hemoglobin has responded appropriately. She has not noticed any blood in her stools. No change in her bowel habits. She has no other complaints at this time. She just wants to feel better. She takes Dexilant for her reflux symptoms which usually keeps a fairly under control. Patient is currently n.p.o. She is hungry. She is on long-term anticoagulation due to atrial fibrillation. She had a CT scan at outside facility demonstrating no acute abnormality. She had a V/Q scan today which demonstrated normal perfusion of the lungs. Patient denies any sweats chills shortness of breath or chest pain at this time. Allergies and Home Medications Allergies Coded Allergies: sulfamethoxazole (Verified Allergy, Unknown, 12/28/20) trimethoprim (Verified Allergy, Unknown, 12/28/20) Uncoded Allergies: STATIN (Allergy, Unknown, 12/28/20) Patient Home Medication List Home Medication List Reviewed: Yes Aspirin (Aspirin) 81 Mg Tab.chew, 81 MG PO DAILY, (Reported) Entered as Reported by: GRETTA CONNER on 12/28/201604 Last Action: Reviewed Dexlansoprazole (Dexilant) 60 Mg , 60 MG PO DAILY, (Reported) Entered as Reported by: GRETTA CONNER on 12/28/201604 Last Action: Reviewed Ferrous Sulfate (Ferrous Sulfate) 325 Mg Tablet, 325 MG PO 1800, (Reported) Entered as Reported by: GRETTA CONNER on 12/28/201604 Last Action: Reviewed Lisinopril (Lisinopril) 40 Mg Tablet, 40 MG PO BID, (Reported) Entered as Reported by: GRETTA CONNER on 12/28/201604 Last Action: Reviewed Metoprolol Succinate (Metoprolol Succinate) 50 Mg Tab.er.24h, 50 MG PO 1800, (Reported) Entered as Reported by: GRETTA CONNER on 12/28/201604 Last Action: Reviewed Nitroglycerin (Nitroglycerin) 0.3 Mg Tab.subl, 0.3 MG SL UD PRN for CHEST PAIN (ANGINA), (Reported) Entered as Reported by: GRETTA CONNER on 12/28/201604 Last Action: Reviewed Rivaroxaban (Xarelto) 20 Mg Tablet, 20 MG PO 1800, (Reported) Entered as Reported by: GRETTA CONNER on 12/28/201604 Last Action: Reviewed Torsemide (Torsemide) 20 Mg Tablet, 20 MG PO DAILY, (Reported) Entered as Reported by: GRETTA CONNER on 12/28/201604 Last Action: Reviewed Discontinued Medications Cefdinir (Cefdinir) 300 Mg Capsule, 1 EACH PO BID Discontinued Reason: No Longer Taking Prescribed by: LUCILA OROSCO on 06/21/12 1446 Last Action: Discontinued Dexlansoprazole (Dexilant) 60 Mg Cap., 60 MG PO, (Reported) Discontinued Reason: No Longer Taking Entered as Reported by: FEDERICO PETTIT on 06/21/121117 Last Action: Discontinued Indomethacin (Indocin 50 Mg Cap) 50 Mg Capsule, 1 EACH PO TID, (Reported) Discontinued Reason: No Longer Taking Entered as Reported by: FEDERICO PETTIT on 06/21/12 111 Last Action: Discontinued Spironolactone (Spironolactone) 25 Mg Tablet, 25 MG PO, (Reported) Discontinued Reason: No Longer Taking Entered as Reported by: FEDERICO PETTIT on 06/21/12 111 Last Action: Discontinued [Bystolic] , (Reported) Discontinued Reason: No Longer Taking Entered as Reported by: FEDERICO PETTIT on 06/21/121117 Last Action: Discontinued [Nabumetone] , (Reported) Discontinued Reason: No Longer Taking Entered as Reported by: FEDERICO PETTIT on 06/21/12 112 Last Action: Discontinued Past Awrlstd-Qcgayn-Xziedo Hx Reviewed Nursing Assessment Reviewed/Agree w Nursing PMH: Yes Family Medical History Significant Family History: No Pertinent Family Hx Review of Systems-General Constitutional: No chills, No fever; weight loss (10lbs over past 2mo) EENTM: No blurred vision, No vision loss, No throat pain Respiratory: cough, short of breath; No wheezing Cardiovascular: No chest pain, No edema, No palpitations Gastrointestinal: abdominal pain (Epigastric); No diarrhea; loss of appetite; No melena; nausea; No vomiting Genitourinary: No dysuria, No frequency Musculoskeletal: No back pain, No joint pain Skin: No change in color, No change in hair/nails Psychiatric/Neurological: Anxiety; Denies Depressed, Denies Emotional Problems All Other Systems Reviewed Negative Unless Noted: Yes (Negative excepted noted.) Physical Exam-General Problems Physical Exam General Appearance: WD/WN, no apparent distress (Laying in bed) HEENT: PERRL/EOMI, normal ENT inspection Neck: non-tender, supple, normal inspection Respiratory: chest non-tender, no respiratory distress, no accessory muscle use Cardiovascular: no JVD, irregularly irregular Gastrointestinal: soft; No no organomegaly; tenderness (eipgastric region); No hepatomegaly Rectal: deferred Back: normal inspection, no CVA tenderness Extremities: non-tender, no pedal edema, no calf tenderness Neurologic/Psychiatric: alert, normal mood/affect, oriented x 3 Skin: warm/dry, pallor Lymphatic: no adenopathy Assessment/Plan Assessment/Plan Assessment/Plan Epigastric abdominal pain Anemia likely secondary to her gave/watermelon stomach or other upper GI pathology. Atrial fibrillation Long-term anticoagulation Patient with anemia which had to be transfused. We will continue to follow hemoglobin and transfuse as needed Patient to be started on clear liquids since blood transfusion appropriate response and no evidence of active bleeding at this time. We will make her n.p.o. after midnight 12 we can do an EGD tomorrow. We discussed risk and benefits of having EGD performed which she understands and wishes to proceed. We will continue to hold anticoagulation for procedure. And due to her anemia. Will obtain consent. Plan EGD tomorrow. Supervisory-Addendum Brief Verification & Attestation Participated in pt care: history, MDM, physical Personally performed: exam, history, MDM, supervision of care Care discussed with: Medical Student Procedures: n/a Results interpretation: Verified all documentation Verification and Attestation of Medical Student E/M Service A medical student performed and documented this service in my presence. I reviewed and verified all information documented by the medical student and made modifications to such information, when appropriate. I personally performed the physical exam and medical decision making. Elzbieta Farrell, Dec 29, 2020,21:37 DESIRE WALLER Dec 29, 2020 07:24 ELZBIETA FARRELL DO Dec 29, 2020 21:33
[2020-12-29] MEDS: polyethylene glycoL POWDER 17 GM (MIRALAX) PACK PO SCH ×2 (08:36→21:22)
[2020-12-29] MEDS: LINEZOLID IVPB 300 ML IV SCH ×2 (08:36→21:16)
[2020-12-29] MEDS: PANTOPRAZOLE 40 MG (PROTONIX) VIAL IV SCH ×2 (08:36→21:16)
[2020-12-29] MEDS: SENNA W/DOCUSATE (SENOKOT S) TABLET PO SCH ×2 (08:37→21:22)
--- NOTE | 2020-12-29 10:25 | Progress Note ---
NICOLA JOSE MED STUDENT 12/29/20 1025: Subjective Date Seen by a Provider: Dec 29, 2020 Time Seen by a Provider: 07:20 Subjective/Events-last exam Patient reports mild SOB, no change from yesterday. Denies pain. Vitals stable per monitor. States Dr. Alejandro will be evaluating her for a possible EGD today. Review of Systems General: No Chills, No Night Sweats; Fatigue; No Appetite HEENT: No Head Aches, No Visual Changes Pulmonary: Dyspnea (exertional); No Cough, No Pleuritic Chest Pain Cardiovascular: No: Chest Pain, Palpitations, Edema Gastrointestinal: No: Nausea, Vomiting, Abdominal Pain Genitourinary: No Dysuria, No Frequency; Other (julian catheter) Musculoskeletal: No: neck pain, back pain Neurological: No: Weakness, Numbness, Change in speech, Confusion Focused Exam Lactate Level 12/28/20 16:00: Lactic Acid Level 0.73 Objective Exam Last Set of Vital Signs Vital Signs Date Time Temp Pulse Resp B/P (MAP) Pulse Ox O2 Delivery O2 Flow Rate FiO2 12/29/20 08:03 36.5 12/29/20 06:00 65 21 133/70 96 Room Air Capillary Refill : I&O Intake and Output 12/29/20 00:00 Intake Total 300 ml Output Total 100 ml Balance 200 ml Intake Oral 0 ml IV Total 300 ml Output Urine Total 100 ml Daily Weight Change No General: Alert, Oriented X3, Cooperative, No Acute Distress HEENT: Atraumatic, PERRLA, EOMI, Mucous Memb Moist/[place] Neck: Supple, No LAD Lungs: Clear to Auscultation, Normal Air Movement Heart: Regular Rate, Other (afib per bedside monitor/cardizem gtt at 2.5mg/hr) Abdomen: Normal Bowel Sounds, Soft, No Tenderness Extremities: No Clubbing, No Cyanosis, No Edema, Normal Pulses Skin: No Rashes, No Significant Lesion Neuro: Normal Gait, Normal Speech, Normal Tone, Sensation Intact Psych/Mental Status: Mental Status NL, Mood NL Results Lab Laboratory Tests 12/28/20 14:05: B-Type Natriuretic Peptide 177.8H 12/28/20 16:00: White Blood Count 13.0H, Red Blood Count 2.70L, Hemoglobin 7.4L, Hematocrit 25L, Mean Corpuscular Volume 91, Mean Corpuscular Hemoglobin 27, Mean Corpuscular Hemoglobin Concent 30L, Red Cell Distribution Width 17.1H, Platelet Count 376, Mean Platelet Volume 9.1, Immature Granulocyte % (Auto) 1, Neutrophils (%) (Auto) 86H, Lymphocytes (%) (Auto) 7L, Monocytes (%) (Auto) 6, Eosinophils (%) (Auto) 0, Basophils (%) (Auto) 0, Neutrophils # (Auto) 11.2H, Lymphocytes # (Auto) 0.9L, Monocytes # (Auto) 0.7, Eosinophils # (Auto) 0.0, Basophils # (Auto) 0.0, Immature Granulocyte # (Auto) 0.1, Neutrophils % (Manual) 91, Lymphocytes % (Manual) 7, Monocytes % (Manual) 2, Hypochromasia MODERATE, Anisocytosis SLIGHT, Microcytosis SLIGHT, D-Dimer 16.02H, Sodium Level 131L, Potassium Level 4.8, Chloride Level 99, Carbon Dioxide Level 21, Anion Gap 11, Blood Urea Nitrogen 26H, Creatinine 1.62H, Estimat Glomerular Filtration Rate 30, BUN/Creatinine Ratio 16, Glucose Level 118H, Lactic Acid Level 0.73, Calcium Level 9.3, Corrected Calcium 10.0, Total Bilirubin 0.5, Aspartate Amino Transf (AST/SGOT) 22, Alanine Aminotransferase (ALT/SGPT) 16, Alkaline Phosphatase 85, Total Protein 7.0, Albumin 3.1L, Procalcitonin 0.23H 12/28/20 16:50: Urine Color YELLOW, Urine Clarity CLEAR, Urine pH 6.0, Urine Specific [place] 1.015L, Urine Protein TRACEH, Urine Glucose (UA) NEGATIVE, Urine Ketones NEGATIVE, Urine Nitrite NEGATIVE, Urine Bilirubin NEGATIVE, Urine Urobilinogen 0.2, Urine Leukocyte Esterase NEGATIVE, Urine RBC (Auto) TRACE-I, Urine RBC 0-2, Urine WBC NONE, Urine Squamous Epithelial Cells 2-5, Urine Crystals NONE, Urine Bacteria NEGATIVE, Urine Casts NONE, Urine Mucus NEGATIVE, Urine Culture Indicated NO 12/28/20 21:54: White Blood Count 10.2, Red Blood Count 2.36L, Hemoglobin 6.4*L, Hematocrit 21L, Mean Corpuscular Volume 91, Mean Corpuscular Hemoglobin 27, Mean Corpuscular Hemoglobin Concent 30L, Red Cell Distribution Width 17.2H, Platelet Count 343, Mean Platelet Volume 9.0, Immature Granulocyte % (Auto) 1, Neutrophils (%) (Auto) 81H, Lymphocytes (%) (Auto) 11L, Monocytes (%) (Auto) 6, Eosinophils (%) (Auto) 1, Basophils (%) (Auto) 0, Neutrophils # (Auto) 8.3H, Lymphocytes # (Auto) 1.1, Monocytes # (Auto) 0.6, Eosinophils # (Auto) 0.1, Basophils # (Auto) 0.0, Immature Granulocyte # (Auto) 0.1 12/28/20 22:45: White Blood Count 9.8, Red Blood Count 2.44L, Hemoglobin 6.7*L, Hematocrit 22L, Mean Corpuscular Volume 92, Mean Corpuscular Hemoglobin 27, Mean Corpuscular Hemoglobin Concent 30L, Red Cell Distribution Width 17.1H, Platelet Count 344, Mean Platelet Volume 9.3 12/29/20 05:30: White Blood Count 7.8, Red Blood Count 2.85L, Hemoglobin 7.9L, Hematocrit 27L, Mean Corpuscular Volume 94, Mean Corpuscular Hemoglobin 28, Mean Corpuscular Hemoglobin Concent 29L, Red Cell Distribution Width 16.7H, Platelet Count 330, Mean Platelet Volume 9.3, Immature Granulocyte % (Auto) 1, Neutrophils (%) (Auto) 75, Lymphocytes (%) (Auto) 13, Monocytes (%) (Auto) 9, Eosinophils (%) (Auto) 2, Basophils (%) (Auto) 0, Neutrophils # (Auto) 5.9, Lymphocytes # (Auto) 1.0, Monocytes # (Auto) 0.7, Eosinophils # (Auto) 0.1, Basophils # (Auto) 0.0, Immature Granulocyte # (Auto) 0.1, Sodium Level 133L, Potassium Level 4.7, Chloride Level 103, Carbon Dioxide Level 21, Anion Gap 9, Blood Urea Nitrogen 25H, Creatinine 1.49H, Estimat Glomerular Filtration Rate 33, BUN/Creatinine Ratio 17, Glucose Level 98, Calcium Level 9.1, Phosphorus Level 4.2, Magnesium Level 2.3, Triglycerides Level 73, Cholesterol Level 139, LDL Cholesterol Direct 109, VLDL Cholesterol 15, HDL Cholesterol 24L Assessment/Plan Assessment/Plan Assess & Plan/Chief Complaint Anemia with likely GIB -hgb dropped to 6.7 last night, now up to 7.9 this am s/p 1 unit PRBC. -general surgery consulted given complex GI history -NPO -surgery to evaluate for possible EGD/Colonoscopy today -protonix 40mg BID -continue IVF's -eliquis held -recheck H and H in am Afib RVR -rate controlled in the 70's currently -cardizem gtt -continue to monitor Fever of unknown origin -coleman culture -UA negative for nitrites and leuk esterase -continue zyvox and cefepime HARMAN -creatinine 1.49 today, improved -continue to monitor Bilateral pleural effusions -resolved per chest xray 9-9, demonstrates no acute cardiopulm abnormality Pericardial effusion -per outside hospital report -monitor -no pericardial rub HTN -continue to monitor CAD -cardiology consulted H/O GIB Diverticulosis H/O [place]'s esophagus STEPHANIE KOHLI DO 12/30/20 0456: Subjective Subjective/Events-last exam Transfusion required Patient ready for VQ scan EGD per Dr. Alejandro either today or tomorrow Abdominal pain continues midepigastric Very complex medical issues Review of Systems Gastrointestinal: Abdominal Pain Objective Exam General: Alert, Oriented X3, Cooperative, No Acute Distress Lungs: Clear to Auscultation, Normal Air Movement Heart: Other (afib per bedside monitor/cardizem gtt at 2.5mg/hr) Neuro: Normal Gait Psych/Mental Status: Mental Status NL Assessment/Plan Assessment/Plan Assess & Plan/Chief Complaint VQ scan A. fib management Monitor closely Transfusion as needed Supervisory-Addendum Brief Verification & Attestation Participated in pt care: history, MDM, physical Personally performed: exam, history, MDM, supervision of care Care discussed with: Medical Student Procedures: n/a Results interpretation: Verified all documentation Verification and Attestation of Medical Student E/M Service A medical student performed and documented this service in my presence. I reviewed and verified all information documented by the medical student and made modifications to such information, when appropriate. I personally performed the physical exam and medical decision making. Stephanie Kohli, Dec 30, 2020,04:56 NICOLA JOSE MED STUDENT Dec 29, 2020 10:25 STEPHANIE KOHLI DO Dec 30, 2020 04:56
--- NOTE | 2020-12-29 13:28 | Progress Note - Hospitalist ---
FORTINO JOHNSON MED STUDENT 12/29/20 1328: Subjective HPI/CC On Admission Date Seen by Provider: Dec 29, 2020 Time Seen by Provider: 07:20 Chief complaint: Fever of unknown origin with weakness with abdominal pain History of present illness: This is an 85-year-old white female clinic patient of [facility] who presented to the [facility] with severe weakness and fever. Covid was negative. No evidence of UTI with a recent history of that. Atrial fibrillation with rapid ventricular response requiring Cardizem drip upon arrival to the ICU. Elevated D-dimer will require VQ scan since CT angiogram cannot be completed due to elevated creatinine. Patient has a lot of complex medical problems and at age 85 she has high risk for decompensation. Her daughter is at the bedside. Cardiology will be consulted. Dr. Alejandro consulted placed on proton pump inhibitor and will transfuse if necessary. Subjective/Events-last exam Sydni states she felt anxious last night which was improved with Xanax. She reports she has had panic attacks in the past, but never tried anything for them. She reports continued fatigue, weakness, abdominal pain. Nausea was improved with medication. Focused Exam Lactate Level 12/28/20 16:00: Lactic Acid Level 0.73 Objective Exam Vital Signs Vital Signs Date Time Temp Pulse Resp B/P (MAP) Pulse Ox O2 Delivery O2 Flow Rate FiO2 12/29/20 12:56 36.8 12/29/20 11:00 77 21 117/64 97 Room Air Capillary Refill : General Appearance: No Apparent Distress, WD/WN HEENT: PERRL/EOMI Neck: Normal Inspection, Non Tender Respiratory: Chest Non Tender, Lungs Clear, Normal Breath Sounds, No Accessory Muscle Use, No Respiratory Distress Cardiovascular: No Edema, No Murmur, Irregularly Irregular, Other (regular rate) Gastrointestinal: Soft, Tenderness (epigastric and diffuse upper abdominal) Extremity: Normal Inspection, No Calf Tenderness Neurologic/Psychiatric: Alert, Oriented x3, No Motor/Sensory Deficits, Normal Mood/Affect Skin: Normal Color, Warm/Dry Results/Procedures Lab Laboratory Tests 12/28/20 16:00 12/28/20 21:54 12/28/20 22:45 12/29/20 05:30 Patient resulted labs reviewed. Assessment/Plan Assessment and Plan Assess & Plan/Chief Complaint Acute Anemia -transfused 1 unit early this morning d/t HGB drop to 6.7. HGB was 7.9 at 5:30 Am. -plan for endoscopy today, NPO currently -endoscopy held -continue to monitor SOB, diffuse weakness, constant A-fib HARMAN creatinine this morning 1.49 Elevated D-Dimer 16.02 today -plan for VQ scan due to patient's renal function -not requiring oxygen, not hypoxic or tachypneic. Atrial fibrillation -rate controlled on cardizem drip this morning, still irregularly irregular rhythm. Continue management -cardiology is following Fever of unknown origin -patient reported fever. Fever has not yet been recorded. -pericardial and pleural effusions, mildly elevated PCT. On antibiotics prophylactically -influenza, COVID, strep testing was negative in the ER STEPHANIE KOHLI DO 12/30/20 0458: Subjective Subjective/Events-last exam Transfusion required Patient ready for VQ scan EGD per Dr. Alejandro either today or tomorrow Abdominal pain continues midepigastric Very complex medical issues Review of Systems General: Fatigue Gastrointestinal: Abdominal Pain Objective Exam General Appearance: No Apparent Distress, WD/WN, Chronically ill, Obese Respiratory: No Accessory Muscle Use, No Respiratory Distress, Decreased Breath Sounds Cardiovascular: Regular Rate, Rhythm Neurologic/Psychiatric: Alert, Oriented x3 Assessment/Plan Assessment and Plan Assess & Plan/Chief Complaint VQ scan Cardizem Cardiology consult EGD Supervisory-Addendum Brief Verification & Attestation Participated in pt care: history, MDM, physical Personally performed: exam, history, MDM, supervision of care Care discussed with: Medical Student Procedures: n/a Results interpretation: Verified all documentation Verification and Attestation of Medical Student E/M Service A medical student performed and documented this service in my presence. I reviewed and verified all information documented by the medical student and made modifications to such information, when appropriate. I personally performed the physical exam and medical decision making. Stephanie Kohli Dec 30, 2020,04:57 FORTINO JOHNSON MED STUDENT Dec 29, 2020 13:28 STEPHANIE KOHLI DO Dec 30, 2020 04:58
--- NOTE | 2020-12-29 13:31 | Diagnostic Imaging Report ---
Indication: Shortness of breath The patient received 5.5 mCi technetium 99 MAA and perfusion imaging performed in varying obliquities, is correlated with recent chest x-ray of one-day prior. Findings: There are no matched or mismatched perfusion defects. Scintigraphic distribution of the radiopharmacy was symmetric and normal. No evidence for PE. Impression: Normal perfusion lung scan. Dictated by: Dictated on workstation # [id number]
--- NOTE | 2020-12-29 15:30 | Cardiology Progress Note ---
Progress Note-Cardiology Events since last exam Date Seen by Provider: Dec 29, 2020 Time Seen by Provider: 15:28 Events since last exam I am seeing her due to atrial fibrillation. She has received one unit of packed red blood cells. She still has epigastric pain. She denies chest pain, dyspnea, palpitations, syncope, or ankle edema. Vitals Last set of Vitals Signs Vital Signs 12/29/20 12/29/20 12/29/20 11:00 12:00 12:56 Temp 36.8 Pulse 77 Resp 19 B/P (MAP) 117/64 Pulse Ox 93 O2 Delivery Room Air Labs Labs Laboratory Tests 12/28/20 16:00 12/28/20 21:54 12/28/20 22:45 12/29/20 05:30 Exam Vital Signs Vital Signs Date Time Temp Pulse Resp B/P (MAP) Pulse Ox O2 Delivery O2 Flow Rate FiO2 12/29/20 12:56 36.8 12/29/20 12:00 77 19 93 Room Air Physical Exam General: Alert. No acute distress. She is obese. Eye: No xanthelasma. HENT: Normocephalic. Neck: Jugular venous pressure does not appear elevated. Respiratory: Lungs are clear to auscultation. Respirations are non-labored. Breath sounds are equal. Symmetrical chest wall expansion. Cardiovascular: Normal rate. Irregular rhythm. No murmur. No gallop. No edema. Gastrointestinal: Soft. Normal bowel sounds. Skin: Warm. Dry. Neurologic: Alert and oriented to person, place, time. Cranial nerves 3-11 grossly intact. Psychiatric: Cooperative. Appropriate mood & affect. Labs Laboratory Tests Test 12/28/20 16:00 12/28/20 16:50 12/28/20 21:54 12/28/20 22:45 Range/Units White Blood Count 13.0 H 10.2 9.8 4.3-11.0 10^3/uL Red Blood Count 2.70 L 2.36 L 2.44 L 3.80-5.11 10^6/uL Hemoglobin 7.4 L 6.4 *L 6.7 *L 11.5-16.0 g/dL Hematocrit 25 L 21 L 22 L 35-52 % Mean Corpuscular Volume 91 91 92 80-99 fL Mean Corpuscular Hemoglobin 27 27 27 25-34 pg Mean Corpuscular Hemoglobin Concent 30 L 30 L 30 L 32-36 g/dL Red Cell Distribution Width 17.1 H 17.2 H 17.1 H 10.0-14.5 % Platelet Count 376 343 344 130-400 10^3/uL Mean Platelet Volume 9.1 9.0 9.3 9.0-12.2 fL Immature Granulocyte % (Auto) 1 1 % Neutrophils (%) (Auto) 86 H 81 H 42-75 % Lymphocytes (%) (Auto) 7 L 11 L 12-44 % Monocytes (%) (Auto) 6 6 0-12 % Eosinophils (%) (Auto) 0 1 0-10 % Basophils (%) (Auto) 0 0 0-10 % Neutrophils # (Auto) 11.2 H 8.3 H 1.8-7.8 10^3/uL Lymphocytes # (Auto) 0.9 L 1.1 1.0-4.0 10^3/uL Monocytes # (Auto) 0.7 0.6 0.0-1.0 10^3/uL Eosinophils # (Auto) 0.0 0.1 0.0-0.3 10^3/uL Basophils # (Auto) 0.0 0.0 0.0-0.1 10^3/uL Immature Granulocyte # (Auto) 0.1 0.1 0.0-0.1 10^3/uL Neutrophils % (Manual) 91 % Lymphocytes % (Manual) 7 % Monocytes % (Manual) 2 % Hypochromasia MODERATE Anisocytosis SLIGHT Microcytosis SLIGHT D-Dimer 16.02 H 0.00-0.49 UG/ML Sodium Level 131 L 135-145 MMOL/L Potassium Level 4.8 3.6-5.0 MMOL/L Chloride Level 99 98-107 MMOL/L Carbon Dioxide Level 21 21-32 MMOL/L Anion Gap 11 5-14 MMOL/L Blood Urea Nitrogen 26 H 7-18 MG/DL Creatinine 1.62 H 0.60-1.30 MG/DL Estimat Glomerular Filtration Rate 30 BUN/Creatinine Ratio 16 Glucose Level 118 H 70-105 MG/DL Lactic Acid Level 0.73 0.50-2.00 MMOL/L Calcium Level 9.3 8.5-10.1 MG/DL Corrected Calcium 10.0 8.5-10.1 MG/DL Total Bilirubin 0.5 0.1-1.0 MG/DL Aspartate Amino Transf (AST/SGOT) 22 5-34 U/L Alanine Aminotransferase (ALT/SGPT) 16 0-55 U/L Alkaline Phosphatase 85 40-136 U/L Total Protein 7.0 6.4-8.2 GM/DL Albumin 3.1 L 3.2-4.5 GM/DL Procalcitonin 0.23 H <0.10 NG/ML Urine Color YELLOW Urine Clarity CLEAR Urine pH 6.0 5-9 Urine Specific [place] 1.015 L 1.016-1.022 Urine Protein TRACE H NEGATIVE Urine Glucose (UA) NEGATIVE NEGATIVE Urine Ketones NEGATIVE NEGATIVE Urine Nitrite NEGATIVE NEGATIVE Urine Bilirubin NEGATIVE NEGATIVE Urine Urobilinogen 0.2 < = 1.0 MG/DL Urine Leukocyte Esterase NEGATIVE NEGATIVE Urine RBC (Auto) TRACE-I NEGATIVE Urine RBC 0-2 /HPF Urine WBC NONE /HPF Urine Squamous Epithelial Cells 2-5 /HPF Urine Crystals NONE /LPF Urine Bacteria NEGATIVE /HPF Urine Casts NONE /LPF Urine Mucus NEGATIVE /LPF Urine Culture Indicated NO Test 12/29/20 05:30 Range/Units White Blood Count 7.8 4.3-11.0 10^3/uL Red Blood Count 2.85 L 3.80-5.11 10^6/uL Hemoglobin 7.9 L 11.5-16.0 g/dL Hematocrit 27 L 35-52 % Mean Corpuscular Volume 94 80-99 fL Mean Corpuscular Hemoglobin 28 25-34 pg Mean Corpuscular Hemoglobin Concent 29 L 32-36 g/dL Red Cell Distribution Width 16.7 H 10.0-14.5 % Platelet Count 330 130-400 10^3/uL Mean Platelet Volume 9.3 9.0-12.2 fL Immature Granulocyte % (Auto) 1 % Neutrophils (%) (Auto) 75 42-75 % Lymphocytes (%) (Auto) 13 12-44 % Monocytes (%) (Auto) 9 0-12 % Eosinophils (%) (Auto) 2 0-10 % Basophils (%) (Auto) 0 0-10 % Neutrophils # (Auto) 5.9 1.8-7.8 10^3/uL Lymphocytes # (Auto) 1.0 1.0-4.0 10^3/uL Monocytes # (Auto) 0.7 0.0-1.0 10^3/uL Eosinophils # (Auto) 0.1 0.0-0.3 10^3/uL Basophils # (Auto) 0.0 0.0-0.1 10^3/uL Immature Granulocyte # (Auto) 0.1 0.0-0.1 10^3/uL Sodium Level 133 L 135-145 MMOL/L Potassium Level 4.7 3.6-5.0 MMOL/L Chloride Level 103 98-107 MMOL/L Carbon Dioxide Level 21 21-32 MMOL/L Anion Gap 9 5-14 MMOL/L Blood Urea Nitrogen 25 H 7-18 MG/DL Creatinine 1.49 H 0.60-1.30 MG/DL Estimat Glomerular Filtration Rate 33 BUN/Creatinine Ratio 17 Glucose Level 98 70-105 MG/DL Calcium Level 9.1 8.5-10.1 MG/DL Phosphorus Level 4.2 2.3-4.7 MG/DL Magnesium Level 2.3 1.6-2.4 MG/DL Triglycerides Level 73 <150 MG/DL Cholesterol Level 139 < 200 MG/DL LDL Cholesterol Direct 109 1-129 MG/DL VLDL Cholesterol 15 5-40 MG/DL HDL Cholesterol 24 L 40-60 MG/DL Diagnosis/Problems Diagnosis/Problems (1) Permanent atrial fibrillation Assessment & Plan: Heart rates are improving. Her oral metoprolol has been resumed. We will attempt to wean off the intravenous diltiazem today. If her heart rates become further elevated, I will plan to double the dose of metoprolol. I will also change this to dosing in the mornings. Her rivaroxaban is on hold due to possible gastrointestinal hemorrhaging. This should be resumed as soon as possible. 48 hours without oral anticoagulation would still keep her at low risk of a stroke. (2) Coronary artery disease without angina pectoris Assessment & Plan: She is not having any angina at this point in time and there are no ischemic changes on her electrocardiogram. Given her acute on chronic anemia coupled with previous upper gastrointestinal hemorrhage, I would suggest that the patient stop taking aspirin permanently. We will resume rivaroxaban for the atrial fibrillation when able. Rivaroxaban does have data on reducing cardiac events. Her beta-ileana has been resumed. Her LDL level is elevated. I will start a low-dose of rosuvastatin. This will need to be followed by her [facility] truckman after discharge. (3) Primary hypertension Assessment & Plan: Blood pressure is presently controlled on intravenous diltiazem and the oral beta-ileana. We will attempt to wean off the intravenous diltiazem today. If her heart rates become elevated above 100 bpm, I would double the dose of metoprolol. If her blood pressures become elevated, we can resume a low-dose dose of lisinopril which she was taking at home. (4) Mixed hyperlipidemia Assessment & Plan: She did not appear to be taking statin medication at home. Her LDL level is elevated. I will add low-dose rosuvastatin as above. (5) Pulmonary hypertension Assessment & Plan: Etiology unclear. Some of this could be related to her morbid obesity. In addition, she has an elevated D-dimer level which raises a concern for pulmonary embolism although she has been taking rivaroxaban which should help prevent deep venous thrombosis and pulmonary emboli. The pulmonary hypertension will need to be followed longitudinally by her regular outpatient truckman at the outside facility. (6) Anemia Assessment & Plan: As above, given the acute on chronic anemia coupled with previous gastrointestinal hemorrhages, I would suggest stopping her low strength aspirin and discontinue rivaroxaban for the atrial fibrillation and coronary artery disease. (7) Morbid obesity Assessment & Plan: She needs to work on weight loss. SARAH FRANCO JR, MD Dec 29, 2020 15:30
[2020-12-29] MEDS: meTOproloL SUCCINATE 50 MG (TOPROL XL) TAB PO SCH (15:47)
[2020-12-29] MEDS ORDERED: ROSUVASTATIN 10 MG (CRESTOR) TABLET PO SCH (21:00)
[2020-12-30] MEDS: NS IV 1000 ML 1,000 ML IV SCH ×3 (04:35→16:10)
[2020-12-30 05:49] LABS: BASOPHILS % (AUTO) 1 % (0-10); EOSINOPHILS # (AUTO) 0.2 10^3/uL (0.0-0.3); EOSINOPHILS % (AUTO) 2 % (0-10); HEMATOCRIT 28 % (35-52); HEMOGLOBIN 8.1 g/dL (11.5-16.0); LYMPHOCYTES # (AUTO) 0.7 10^3/uL (1.0-4.0); LYMPHOCYTES % (AUTO) 10 % (12-44); MEAN CORPUSCULAR HEMOGLOBIN 27 pg (25-34); MEAN CORPUSCULAR HGB CONC 30 g/dL (32-36); MEAN CORPUSCULAR VOLUME 92 fL (80-99); MEAN PLATELET VOLUME 9.2 fL (9.0-12.2); MONOCYTES # (AUTO) 0.7 10^3/uL (0.0-1.0); MONOCYTES % (AUTO) 9 % (0-12); NEUTROPHILS # (AUTO) 5.8 10^3/uL (1.8-7.8); NEUTROPHILS % (AUTO) 78 % (42-75); PLATELET COUNT 352 10^3/uL (130-400); WHITE BLOOD COUNT 7.5 10^3/uL (4.3-11.0)
[2020-12-30 06:01] LABS: POTASSIUM 4.7 MMOL/L (3.6-5.0)
[2020-12-30 06:02] LABS: CALCIUM 9.3 MG/DL (8.5-10.1)
[2020-12-30 06:06] LABS: PHOSPHORUS 3.3 MG/DL (2.3-4.7)
[2020-12-30 06:07] LABS: CREATININE SERUM 1.23 MG/DL (0.60-1.30)
[2020-12-30 06:09] LABS: MAGNESIUM 2.2 MG/DL (1.6-2.4)
[2020-12-30] MEDS: CEFEPIME INJECTION 1,000 MG in WATER (STERILE) FOR INJECTION 10 ML IV SCH ×2 (06:54→18:22)
[2020-12-30] MEDS ORDERED: meTOproloL SUCCINATE 50 MG (TOPROL XL) TAB PO SCH (08:00)
[2020-12-30] MEDS: LINEZOLID IVPB 300 ML IV SCH ×2 (08:38→20:02)
--- NOTE | 2020-12-30 09:24 | Progress Note - Surgery ---
DESIRE WALLER 12/30/20 0924: Subjective Date Seen by a Provider: Dec 30, 2020 Time Seen by a Provider: 08:45 Subjective/Events-last exam Pt sitting comfortably in chair. Reports still feeling some epigastric tenderness, but overall much improved and in a better state. Still reports cough and SOB. Currently on liquid diet. No bowel movements yet. Denies any urinary/bowel complaints. Denies any fever, chills, vomiting, or diarrhea. Hemoglobin stable around 8. EGD planned for today. Review of Systems General: No Chills, No Fatigue; Appetite HEENT: No Head Aches, No Visual Changes, No Sore Throat Pulmonary: Dyspnea, Cough Cardiovascular: No: Chest Pain, Palpitations, Edema Gastrointestinal: Abdominal Pain (Slight epigastric pain, much improved); No: Nausea, Vomiting, Diarrhea Genitourinary: No Dysuria, No Frequency, No Incontinence Musculoskeletal: No: neck pain, back pain, leg pain Neurological: No: Weakness, Numbness, Seizures Focused Exam Lactate Level 12/28/20 16:00: Lactic Acid Level 0.73 Objective Exam Vital Signs Date Time Temp Pulse Resp B/P (MAP) Pulse Ox O2 Delivery O2 Flow Rate FiO2 12/30/20 08:00 Room Air 12/30/20 07:53 36.5 90 22 116/64 94 Room Air 12/30/20 07:04 86 12/30/20 06:00 84 18 127/65 94 Room Air 12/30/20 05:00 78 23 123/65 90 Room Air 12/30/20 04:19 Room Air 12/30/20 04:19 36.6 12/30/20 04:00 83 20 111/59 90 Room Air 12/30/20 03:00 87 20 111/67 95 Room Air 12/30/20 03:00 36.6 12/30/20 02:00 89 25 138/75 93 Room Air 12/30/20 01:00 76 12/30/20 01:00 76 24 108/68 91 Room Air 12/30/20 00:00 Room Air 12/30/20 00:00 84 23 106/56 91 Room Air 12/29/20 23:00 82 24 119/67 90 Room Air 12/29/20 22:00 88 26 112/64 92 Room Air 12/29/20 21:00 90 25 121/61 93 Room Air 12/29/20 20:50 Room Air 12/29/20 20:00 91 18 139/82 95 Room Air 12/29/20 20:00 37.1 12/29/20 19:00 97 12/29/20 19:00 97 28 127/84 92 Room Air 12/29/20 18:00 90 23 118/66 96 Room Air 12/29/20 17:00 89 19 126/65 95 Room Air 12/29/20 16:32 36.6 12/29/20 16:15 88 23 121/59 94 Room Air 12/29/20 16:00 96 Room Air 12/29/20 12:56 36.8 12/29/20 12:45 81 12/29/20 12:00 96 Room Air 12/29/20 12:00 77 19 93 Room Air 12/29/20 11:00 77 21 117/64 97 Room Air 12/29/20 10:00 66 17 107/67 98 Room Air I & O 12/30/20 07:00 Intake Total 1420 ml Output Total 1070 ml Balance 350 ml Capillary Refill : General Appearance: No Apparent Distress, WD/WN, Chronically ill, Obese HEENT: PERRL/EOMI Neck: Normal Inspection, Non Tender, Supple Respiratory: Chest Non Tender, Lungs Clear, Normal Breath Sounds, No Accessory Muscle Use, No Respiratory Distress Gastrointestinal: No soft, No no organomegaly; tenderness (eipgastric region, minimal) Extremity: Normal Inspection, Non Tender, No Calf Tenderness, No Pedal Edema Neurologic/Psychiatric: Alert, Oriented x3, Normal Mood/Affect Skin: Normal Color, Warm/Dry Results Lab Laboratory Tests 12/29/20 17:04: Hemoglobin 8.0L, Hematocrit 26L 12/30/20 05:05: Hemoglobin 8.1L, Hematocrit 28L, White Blood Count 7.5, Red Blood Count 2.98L, Mean Corpuscular Volume 92, Mean Corpuscular Hemoglobin 27, Mean Corpuscular Hemoglobin Concent 30L, Red Cell Distribution Width 16.7H, Platelet Count 352, Mean Platelet Volume 9.2, Immature Granulocyte % (Auto) 1, Neutrophils (%) (Auto) 78H, Lymphocytes (%) (Auto) 10L, Monocytes (%) (Auto) 9, Eosinophils (%) (Auto) 2, Basophils (%) (Auto) 1, Neutrophils # (Auto) 5.8, Lymphocytes # (Auto) 0.7L, Monocytes # (Auto) 0.7, Eosinophils # (Auto) 0.2, Basophils # (Auto) 0.0, Immature Granulocyte # (Auto) 0.0, Sodium Level 132L, Potassium Level 4.7, Chloride Level 104, Carbon Dioxide Level 20L, Anion Gap 8, Blood Urea Nitrogen 19H, Creatinine 1.23, Estimat Glomerular Filtration Rate 42, BUN/Creatinine Ratio 15, Glucose Level 98, Calcium Level 9.3, Phosphorus Level 3.3, Magnesium Level 2.2 Microbiology 12/28/20 Blood Culture - Preliminary, Resulted No growth 12/28/20 MRSA Screen - Final, Complete MRSA not isolated Assessment/Plan Assessment/Plan Assessment/Plan Fever of unknown origin Epigastric Abdominal pain Severe anemia with history of GI bleeds, acutely resolved Transfusion during current hospitalization Atrial fibrillation with rapid ventricular response Bilateral pleural effusions Small pericardial effusion EGD planned for today Maintain liquid diet and continue to hold blood thinners Referall to GI specialist for management of chronic GI issues VQ scan, reviewed showing no signs of PE Continued A. fib management by cardiology Monitor closely ELZBIETA ALEJANDRO DO 12/30/20 1540: Subjective Subjective/Events-last exam Feeling a little better today. NPO. Hgb stable. Planning egd today. Denies n/v fever sweats chills shortness of breath or chest pain. Objective Exam General Appearance: No Apparent Distress, Chronically ill, Obese HEENT: PERRL/EOMI Neck: Non Tender, Supple Respiratory: Chest Non Tender, No Accessory Muscle Use, No Respiratory Distress Cardiovascular: Regular Rate, Rhythm, No JVD Gastrointestinal: soft, tenderness (eipgastric region, minimal) Neurologic/Psychiatric: Alert, Oriented x3 Skin: Normal Color, Warm/Dry Lymphatic: No Adenopathy Assessment/Plan Assessment/Plan Assessment/Plan Epigastric Abdominal pain Severe anemia with history of GI bleeds, acutely resolved Transfusion during current hospitalization Atrial fibrillation with rapid ventricular response Bilateral pleural effusions Small pericardial effusion EGD planned for today NPO and continue to hold blood thinners Follow hgb, transfuse as needed. Get gallbladder u/s could be done outpatient if ready for discharge VQ scan, reviewed showing no signs of PE Continued A. fib management by cardiology Monitor closely Supervisory-Addendum Brief Verification & Attestation Participated in pt care: history, MDM, physical Personally performed: exam, history, MDM, supervision of care Care discussed with: Medical Student Procedures: n/a Results interpretation: Verified all documentation Verification and Attestation of Medical Student E/M Service A medical student performed and documented this service in my presence. I reviewed and verified all information documented by the medical student and made modifications to such information, when appropriate. I personally performed the physical exam and medical decision making. Elzbieta Alejandro, Dec 30, 2020,15:40 DESIRE WALLER Dec 30, 2020 09:24 ELZBIETA ALEJANDRO DO Dec 30, 2020 15:40
[2020-12-30] MEDS ORDERED: guaiFENesin (MUCINEX) 600 MG TAB PO PRN (10:00)
--- NOTE | 2020-12-30 11:51 | Cardiology Progress Note ---
Progress Note-Cardiology Events since last exam Date Seen by Provider: Dec 30, 2020 Time Seen by Provider: 08:40 Events since last exam I am seeing her for atrial fibrillation. Yesterday she was weaned off the i ntravenous diltiazem. She has been transferred out to the cardiac care unit from the intensive care unit. She will be undergoing an upper endoscopy later today. She has not required any additional blood transfusions other than the one she received the first day. Yesterday I ordered statin medication but the patient refused to take the medication due to profound fatigue she experienced in the past. She denied chest pain, dyspnea, palpitations, syncope, or ankle edema. Certain portions of this document may have been dictated utilizing voice recognition technology. Inherent to this technology, typographical and grammatical errors may exist. As much as I am diligent to identify and correct these mistakes, some errors may remain in the document. Vitals Last set of Vitals Signs Vital Signs 12/30/20 11:23 Temp 36.5 Pulse 92 Resp 18 B/P (MAP) 131/78 Pulse Ox 93 O2 Delivery Room Air Labs Labs Laboratory Tests 12/29/20 17:04 12/30/20 05:05 Exam Vital Signs Vital Signs Date Time Temp Pulse Resp B/P (MAP) Pulse Ox O2 Delivery O2 Flow Rate FiO2 12/30/20 11:23 36.5 92 18 131/78 93 Room Air Physical Exam General: Alert. No acute distress. She is obese Eye: No xanthelasma. HENT: Normocephalic. Neck: Jugular venous pressure does not appear elevated. Respiratory: Lungs are clear to auscultation. Respirations are non-labored. Breath sounds are equal. Symmetrical chest wall expansion. Cardiovascular: Normal rate. Irregular rhythm. No murmur. No gallop. No edema. Gastrointestinal: Soft. Normal bowel sounds. Skin: Warm. Dry. Neurologic: Alert and oriented to person, place, time. Cranial nerves 3-11 grossly intact. Psychiatric: Cooperative. Appropriate mood & affect. Labs Laboratory Tests Test 12/29/20 17:04 12/30/20 05:05 12/30/20 11:40 Range/Units Hemoglobin 8.0 L 8.1 L 11.5-16.0 g/dL Hematocrit 26 L 28 L 35-52 % White Blood Count 7.5 4.3-11.0 10^3/uL Red Blood Count 2.98 L 3.80-5.11 10^6/uL Mean Corpuscular Volume 92 80-99 fL Mean Corpuscular Hemoglobin 27 25-34 pg Mean Corpuscular Hemoglobin Concent 30 L 32-36 g/dL Red Cell Distribution Width 16.7 H 10.0-14.5 % Platelet Count 352 130-400 10^3/uL Mean Platelet Volume 9.2 9.0-12.2 fL Immature Granulocyte % (Auto) 1 % Neutrophils (%) (Auto) 78 H 42-75 % Lymphocytes (%) (Auto) 10 L 12-44 % Monocytes (%) (Auto) 9 0-12 % Eosinophils (%) (Auto) 2 0-10 % Basophils (%) (Auto) 1 0-10 % Neutrophils # (Auto) 5.8 1.8-7.8 10^3/uL Lymphocytes # (Auto) 0.7 L 1.0-4.0 10^3/uL Monocytes # (Auto) 0.7 0.0-1.0 10^3/uL Eosinophils # (Auto) 0.2 0.0-0.3 10^3/uL Basophils # (Auto) 0.0 0.0-0.1 10^3/uL Immature Granulocyte # (Auto) 0.0 0.0-0.1 10^3/uL Sodium Level 132 L 135-145 MMOL/L Potassium Level 4.7 3.6-5.0 MMOL/L Chloride Level 104 98-107 MMOL/L Carbon Dioxide Level 20 L 21-32 MMOL/L Anion Gap 8 5-14 MMOL/L Blood Urea Nitrogen 19 H 7-18 MG/DL Creatinine 1.23 0.60-1.30 MG/DL Estimat Glomerular Filtration Rate 42 BUN/Creatinine Ratio 15 Glucose Level 98 70-105 MG/DL Calcium Level 9.3 8.5-10.1 MG/DL Phosphorus Level 3.3 2.3-4.7 MG/DL Magnesium Level 2.2 1.6-2.4 MG/DL Diagnosis/Problems Diagnosis/Problems (1) Permanent atrial fibrillation Assessment & Plan: Heart rates now improved on metoprolol. If her heart rates become more elevated, I would suggest doubling the dose of metoprolol. I have also changed her dosing from taking this in the evening to the mornings which should help with rate control. Her rivaroxaban is on hold due to the possible upper gastrointestinal hemorrhage. We will need to resume this as soon as possible. I have discontinued her aspirin. (2) Coronary artery disease without angina pectoris Assessment & Plan: She is not having any angina at this point in time and there are no ischemic changes on her electrocardiogram. Given her acute on chronic anemia coupled with previous upper gastrointestinal hemorrhage, I would suggest that the patient stop taking aspirin permanently. We will resume rivaroxaban for the atrial fibrillation when able. Rivaroxaban does have data on reducing cardiac events. Her beta-ileana has been resumed. Her LDL level is elevated. She refused to take statin medication. I will start her on ezetimibe. (3) Primary hypertension Assessment & Plan: Blood pressures are reasonably well controlled on the oral beta-ileana. She was taking lisinopril at home but this is presently on hold. (4) Mixed hyperlipidemia Assessment & Plan: Her LDL level is elevated. She has known coronary artery disease. I will add ezetimibe since she refuses to take statin medications. (5) Pulmonary hypertension Assessment & Plan: Etiology unclear. Some of this could be related to her morbid obesity. In addition, she has an elevated D-dimer level which raises a concern for pulmonary embolism although she has been taking rivaroxaban which should help prevent deep venous thrombosis and pulmonary emboli. The pulmonary hypertension will need to be followed longitudinally by her regular outpatient cold roll inspector at the outside facility. (6) Anemia Assessment & Plan: As above, given the acute on chronic anemia coupled with previous gastrointestinal hemorrhages, I would suggest stopping her low strength aspirin and discontinue rivaroxaban for the atrial fibrillation and coronary artery disease. (7) Morbid obesity Assessment & Plan: She needs to work on weight loss. SARAH FRANCO JR, MD Dec 30, 2020 11:51
[2020-12-30] MEDS: SENNA W/DOCUSATE (SENOKOT S) TABLET PO SCH ×2 (12:32→19:59)
[2020-12-30] MEDS: polyethylene glycoL POWDER 17 GM (MIRALAX) PACK PO SCH ×2 (12:32→20:00)
[2020-12-30] MEDS: PANTOPRAZOLE 40 MG (PROTONIX) VIAL IV SCH ×2 (12:35→20:00)
--- NOTE | 2020-12-30 13:03 | Progress Note - Hospitalist ---
FORTINO JOHNSON MED STUDENT 12/30/20 1303: Subjective HPI/CC On Admission Date Seen by Provider: Dec 30, 2020 Time Seen by Provider: 08:50 Chief complaint: Fever of unknown origin with weakness with abdominal pain History of present illness: This is an 85-year-old white female clinic patient of [facility] who presented to the [place] ER with severe weakness and fever. Covid was negative. No evidence of UTI with a recent history of that. Atrial fibrillation with rapid ventricular response requiring Cardizem drip upon arrival to the ICU. Elevated D-dimer will require VQ scan since CT angiogram cannot be completed due to elevated creatinine. Patient has a lot of complex medical problems and at age 85 she has high risk for decompensation. Her daughter is at the bedside. Cardiology will be consulted. Dr. Alejandro consulted placed on proton pump inhibitor and will transfuse if necessary. Subjective/Events-last exam Sydni states she is feeling much better, although she continues to have 7/10 abdominal pain. She expressed concern regarding the unknown etiology of her anemia and symptoms. Focused Exam Lactate Level 12/28/20 16:00: Lactic Acid Level 0.73 Objective Exam Vital Signs Vital Signs Date Time Temp Pulse Resp B/P (MAP) Pulse Ox O2 Delivery O2 Flow Rate FiO2 12/30/20 12:01 Room Air 12/30/20 12:00 90 18 128/75 95 12/30/20 11:23 36.5 Capillary Refill : General Appearance: No Apparent Distress, WD/WN, Anxious HEENT: PERRL/EOMI, Moist Mucous Membranes Neck: Full Range of Motion, Normal Inspection Respiratory: Chest Non Tender, Lungs Clear, Normal Breath Sounds, No Accessory Muscle Use, No Respiratory Distress Cardiovascular: Regular Rate, Rhythm, No JVD, No Murmur Gastrointestinal: Soft, Tenderness (epigastric) Extremity: No Calf Tenderness Neurologic/Psychiatric: Alert, Oriented x3 Skin: Normal Color, Warm/Dry Lymphatic: No Adenopathy Results/Procedures Lab Laboratory Tests 12/29/20 17:04 12/30/20 05:05 Patient resulted labs reviewed. Assessment/Plan Assessment and Plan Assess & Plan/Chief Complaint Acute Anemia -transfused 1 unit this hospitalization but HGB stabilized since, 8.1 today. -plan for endoscopy today, NPO currently -continue to monitor SOB, diffuse weakness, constant A-fib HARMAN creatinine this morning improved compared to yesterday VQ scan no emboli -not requiring oxygen, not hypoxic or tachypneic. Atrial fibrillation -rate controlled, cardizem drip discontinued. still irregularly irregular rhy thm. Continue management -cardiology is following Fever of unknown origin -patient reported fever. Fever has not yet been recorded. -pericardial and pleural effusions, mildly elevated PCT. On antibiotics prophylactically -influenza, COVID, strep testing was negative in the ER -continue medications STEPHANIE KOHLI DO 12/31/20 0506: Subjective Subjective/Events-last exam Patient doing much better EGD today Abdominal pain continues but improved Has multiple questions of which no clear answer could be given until EGD completed Daughter at the bedside Supportive care recommended Hemoglobin stable Review of Systems General: Fatigue Gastrointestinal: Abdominal Pain Objective Exam General Appearance: No Apparent Distress, WD/WN, Anxious, Chronically ill, Obese Respiratory: Decreased Breath Sounds Cardiovascular: Irregularly Irregular, Tachycardia Neurologic/Psychiatric: Alert, Oriented x3 Assessment/Plan Assessment and Plan Assess & Plan/Chief Complaint Antibiotics to continue Monitor hemoglobin EGD today Appreciate cardiology Telemetry to maintain Supervisory-Addendum Brief Verification & Attestation Participated in pt care: history, MDM, physical Personally performed: exam, history, MDM, supervision of care Care discussed with: Medical Student Procedures: n/a Results interpretation: Verified all documentation Verification and Attestation of Medical Student E/M Service A medical student performed and documented this service in my presence. I reviewed and verified all information documented by the medical student and made modifications to such information, when appropriate. I personally performed the physical exam and medical decision making. Stephanie Kohli, Dec 31, 2020,05:06 FORTINO JOHNSON MED STUDENT Dec 30, 2020 13:03 STEPHANIE KOHLI DO Dec 31, 2020 05:06
[2020-12-30] MEDS ORDERED: LACTATED RINGERS 1,000 ML IV ONE (14:13)
[2020-12-30] MEDS ORDERED: proPOfol 200 MG/20 ML (DIPRIVAN) VIAL IV ONE (14:15)
[2020-12-30 14:39] VITALS: BP 100/55
[2020-12-30 14:45] VITALS: BP 102/57
[2020-12-30 14:50] VITALS: BP 113/59
--- NOTE | 2020-12-30 14:52 | Anesthesia-General Post-Op ---
MAC Patient Condition Mental Status/LOC: Same as Preop Cardiovascular: Satisfactory Nausea/Vomiting: Absent Respiratory: Satisfactory Pain: Controlled Complications: Absent Post Op Complications Complications None Follow Up Care/Instructions Patient Instructions None needed. Anesthesiology Discharge Order Discharge Order Patient is doing well, no complaints, stable vital signs, no apparent adverse anesthesia problems. No complications reported per nursing. AYANNA GERBER CRNA Dec 30, 2020 14:52
[2020-12-30] MEDS ORDERED: RIVAROXABAN 20 MG TABLET (XARELTO) PO SCH (17:00)
--- NOTE | 2020-12-30 17:41 | Diagnostic Imaging Report ---
EXAM: Right upper quadrant ultrasound. DATE: December 30, 2020. COMPARISON: None. INDICATION: 85-year-old female, abdominal pain. PROCEDURE: Two-dimensional grayscale and color Doppler ultrasound examination of the right upper quadrant was performed. FINDINGS: Liver: The liver is of normal size and echotexture without solid or cystic masses. The main portal vein is patent with normal directional flow and velocity. Bile ducts and gallbladder: There is no pericholecystic fluid, gallbladder wall thickening or gallstone. The gallbladder wall measures 0.2 cm. There is no intrahepatic or extrahepatic biliary ductal dilation. The common bile duct measures 0.3 cm. Right kidney: There are anechoic right renal lesions without internal blood flow consistent with a benign cysts. These measure approximately 2.7 x 2.4 x 2.3 cm in size, 1.9 x 0.9 x 1.3 cm in size and 2.1 x 2.0 x 2.2 cm in size. No hydronephrosis. The right kidney measures 9.9 cm x 4.8 cm x 4.2 cm. Pancreas: Normal visualized pancreas. IMPRESSION: 1. No evidence of cholelithiasis or acute cholecystitis. 2. No biliary ductal dilation. 3. Unremarkable sonographic appearance of the liver. 4. Multiple benign right renal cysts. 5. Limited evaluation of the pancreas is unremarkable. Dictated by: Dictated on workstation # [id number]
[2020-12-30] MEDS: dilTIAZem DRIP PRE-MIX 125 ML IV SCH (17:59)
[2020-12-30] MEDS ORDERED: meTOproloL SUCCINATE 50 MG (TOPROL XL) TAB PO NR (18:30)
[2020-12-30] MEDS ORDERED: eZETimibe 10 MG (ZETIA) TABLET PO SCH (21:00)
[2020-12-31] MEDS: NS IV 1000 ML 1,000 ML IV SCH ×2 (01:22→14:18)
[2020-12-31] MEDS: CEFEPIME INJECTION 1,000 MG in WATER (STERILE) FOR INJECTION 10 ML IV SCH ×4 (01:22→18:00)
[2020-12-31 05:52] LABS: BASOPHILS % (AUTO) 0 % (0-10); EOSINOPHILS # (AUTO) 0.2 10^3/uL (0.0-0.3); EOSINOPHILS % (AUTO) 5 % (0-10); HEMATOCRIT 30 % (35-52); HEMOGLOBIN 8.8 g/dL (11.5-16.0); LYMPHOCYTES # (AUTO) 0.8 10^3/uL (1.0-4.0); LYMPHOCYTES % (AUTO) 15 % (12-44); MEAN CORPUSCULAR HEMOGLOBIN 27 pg (25-34); MEAN CORPUSCULAR HGB CONC 29 g/dL (32-36); MEAN CORPUSCULAR VOLUME 94 fL (80-99); MEAN PLATELET VOLUME 9.2 fL (9.0-12.2); MONOCYTES # (AUTO) 0.3 10^3/uL (0.0-1.0); MONOCYTES % (AUTO) 6 % (0-12); NEUTROPHILS # (AUTO) 3.8 10^3/uL (1.8-7.8); NEUTROPHILS % (AUTO) 73 % (42-75); PLATELET COUNT 348 10^3/uL (130-400); WHITE BLOOD COUNT 5.2 10^3/uL (4.3-11.0)
[2020-12-31 06:01] LABS: POTASSIUM 4.6 MMOL/L (3.6-5.0)
[2020-12-31 06:03] LABS: CALCIUM 9.3 MG/DL (8.5-10.1)
[2020-12-31 06:07] LABS: CREATININE SERUM 1.02 MG/DL (0.60-1.30); PHOSPHORUS 3.1 MG/DL (2.3-4.7)
[2020-12-31 06:10] LABS: MAGNESIUM 2.2 MG/DL (1.6-2.4)
[2020-12-31] MEDS ORDERED: meTOproloL SUCCINATE 50 MG (TOPROL XL) TAB PO SCH (08:00)
--- NOTE | 2020-12-31 08:20 | Progress Note - Hospitalist ---
Subjective HPI/CC On Admission Date Seen by Provider: Dec 31, 2020 Time Seen by Provider: 11:00 Chief complaint: Fever of unknown origin with weakness with abdominal pain History of present illness: This is an 85-year-old white female clinic patient of [facility] who presented to the [place] ER with severe weakness and fever. Covid was negative. No evidence of UTI with a recent history of that. Atrial fibrillation with rapid ventricular response requiring Cardizem drip upon arrival to the ICU. Elevated D-dimer will require VQ scan since CT angiogram cannot be completed due to elevated creatinine. Patient has a lot of complex medical problems and at age 85 she has high risk for decompensation. Her daughter is at the bedside. Cardiology will be consulted. Dr. Alejandro consulted placed on proton pump inhibitor and will transfuse if necessary. Subjective/Events-last exam Patient doing much better today Transferring to fourth floor No concerns at this point No source of bleed Hemoglobin stable PT and OT will be ordered Soft diet advanced Review of Systems General: Fatigue, Malaise Focused Exam Lactate Level Objective Exam Vital Signs Vital Signs Date Time Temp Pulse Resp B/P (MAP) Pulse Ox O2 Delivery O2 Flow Rate FiO2 01/01/21 03:28 36.3 67 18 127/74 97 Room Air 12/31/20 10:00 5.00 5.00 Capillary Refill : General Appearance: No Apparent Distress, WD/WN, Chronically ill, Obese Respiratory: Lungs Clear, Normal Breath Sounds Cardiovascular: Regular Rate, Rhythm Neurologic/Psychiatric: Alert, Oriented x3 Results/Procedures Lab Patient resulted labs reviewed. Assessment/Plan Assessment and Plan Assess & Plan/Chief Complaint Assessment: Fever due to bilateral pneumonia with pleural effusions Severe anemia requiring transfusion History of GI bleeds Atrial fibrillation with rapid ventricular response Plan: Monitor hemoglobin EGD revealed no source of bleeding Appreciate cardiology Antibiotics to continue Telemetry to PARISH GOLDSTEIN DO Dec 31, 2020 08:20
--- NOTE | 2020-12-31 09:15 | Progress Note - Surgery ---
FRIDA POWELL MED STUDENT 12/31/20 0915: Subjective Date Seen by a Provider: Dec 31, 2020 Time Seen by a Provider: 08:00 Subjective/Events-last exam surgery consult for: GIB/anemia/abdominal pain Patient states she feels much better today. She denies abdominal pain but complains of mild abdominal tenderness in the upper quadrants and bloating. She complains of SOB upon exertion. She had a BM on 12/29 that was normal and denies seeing blood. She is tolerating ambulation and denies difficulty with urination. She denies eating food for 3-4d. Review of Systems General: No Fatigue, No Malaise HEENT: No Head Aches, No Visual Changes Pulmonary: Dyspnea; No Cough Cardiovascular: Edema; No: Chest Pain Gastrointestinal: Abdominal Pain (upper quadrants tenderness); No: Nausea, Vomiting, Diarrhea, Constipation Genitourinary: No Dysuria, No Frequency Neurological: No: Weakness, Numbness, Incoordination Focused Exam Lactate Level 12/28/20 16:00: Lactic Acid Level 0.73 Objective Exam Vital Signs Date Time Temp Pulse Resp B/P (MAP) Pulse Ox O2 Delivery O2 Flow Rate FiO2 12/31/20 08:00 36.4 87 19 127/69 90 Room Air 12/31/20 07:00 80 12/31/20 05:24 85 18 122/73 98 Room Air 12/31/20 05:00 82 22 124/72 98 Room Air 12/31/20 04:04 36.0 79 16 113/72 97 Room Air 12/31/20 03:32 Room Air 12/31/20 03:00 87 20 122/60 97 Room Air 12/31/20 01:29 86 22 135/73 98 Room Air 12/31/20 01:28 36.1 92 24 100/64 95 Room Air 12/31/20 01:00 73 12/31/20 00:30 36.1 74 17 105/58 96 Room Air 12/30/20 23:00 Room Air 12/30/20 23:00 80 22 111/55 97 Room Air 12/30/20 22:17 83 19 107/63 95 Room Air 12/30/20 21:00 79 18 103/64 95 Room Air 12/30/20 20:30 Room Air 12/30/20 19:19 36.4 89 22 125/77 97 Room Air 12/30/20 19:00 116 12/30/20 16:00 Room Air 12/30/20 15:49 36.0 92 16 131/63 94 Room Air 12/30/20 14:50 96 20 98 Room Air 12/30/20 14:45 84 16 98 5 12/30/20 14:39 90 16 99 OxyMask 10 12/30/20 14:00 Room Air 12/30/20 13:00 Room Air 12/30/20 13:00 85 12/30/20 12:01 Room Air 12/30/20 12:00 90 18 128/75 95 Room Air 12/30/20 11:23 36.5 92 18 131/78 93 Room Air 12/30/20 10:00 84 18 109/81 96 Room Air I & O 12/31/20 07:00 Intake Total 2010 ml Output Total 615 ml Balance 1395 ml Capillary Refill : General Appearance: No Apparent Distress, WD/WN, Chronically ill, Obese HEENT: PERRL/EOMI Neck: Non Tender, Supple Respiratory: Decreased Breath Sounds Cardiovascular: Irregularly Irregular, Tachycardia Gastrointestinal: soft, tenderness (eipgastric region) Extremity: Non Tender, No Calf Tenderness, No Pedal Edema Neurologic/Psychiatric: Alert, Oriented x3, No Motor/Sensory Deficits Skin: Normal Color, Warm/Dry Lymphatic: No Adenopathy Results Lab Laboratory Tests 12/30/20 11:37: SARS-CoV-2 RNA (RT-PCR) Not Detected 12/31/20 05:28: White Blood Count 5.2, Red Blood Count 3.21L, Hemoglobin 8.8L, Hematocrit 30L, Mean Corpuscular Volume 94, Mean Corpuscular Hemoglobin 27, Mean Corpuscular Hemoglobin Concent 29L, Red Cell Distribution Width 16.6H, Platelet Count 348, Mean Platelet Volume 9.2, Immature Granulocyte % (Auto) 1, Neutrophils (%) (A uto) 73, Lymphocytes (%) (Auto) 15, Monocytes (%) (Auto) 6, Eosinophils (%) (Auto) 5, Basophils (%) (Auto) 0, Neutrophils # (Auto) 3.8, Lymphocytes # (Auto) 0.8L, Monocytes # (Auto) 0.3, Eosinophils # (Auto) 0.2, Basophils # (Auto) 0.0, Immature Granulocyte # (Auto) 0.0, Sodium Level 135, Potassium Level 4.6, Chloride Level 106, Carbon Dioxide Level 19L, Anion Gap 10, Blood Urea Nitrogen 14, Creatinine 1.02, Estimat Glomerular Filtration Rate 52, BUN/Creatinine Ratio 14, Glucose Level 83, Calcium Level 9.3, Phosphorus Level 3.1, Magnesium Level 2.2 Microbiology 12/28/20 Blood Culture - Preliminary, Resulted No growth 12/28/20 MRSA Screen - Final, Complete MRSA not isolated Assessment/Plan Assessment/Plan Assessment/Plan Epigastric Abdominal pain Severe anemia with history of GI bleeds, acutely resolved Transfusion during current hospitalization Atrial fibrillation with rapid ventricular response Bilateral pleural effusions Small pericardial effusion EGD yesterday showed no source of bleed gallbladder u/s negative for liver, GB, pancreas, kidney pathologies advance diet as tolerated continue to hold blood thinners Follow hgb, transfuse as needed. Covid negative VQ scan, reviewed showing no signs of PE A. fib managed by cardiology GANGA HOLLIDAY DO 12/31/20 1344: Subjective Time Seen by a Provider: 10:39 Subjective/Events-last exam Pt seen and examined, states she feels better today but still has minimal abd pain. She is hungry. Review of Systems General: No Fatigue, No Malaise Pulmonary: Dyspnea; No Cough Cardiovascular: Edema; No: Chest Pain Gastrointestinal: Abdominal Pain (upper quadrants tenderness); No: Nausea, Vomiting, Diarrhea, Constipation Genitourinary: No Dysuria, No Frequency Objective Exam General Appearance: No Apparent Distress, WD/WN, Obese HEENT: PERRL/EOMI Respiratory: No Accessory Muscle Use, No Respiratory Distress, Decreased Breath Sounds Cardiovascular: Irregularly Irregular, Tachycardia Gastrointestinal: soft, distended (mild, most likley more to do with body habitus), tenderness (eipgastric region) Assessment/Plan Assessment/Plan Assessment/Plan Epigastric Abdominal pain - no source found yet Anemia with history of GI bleeds - acutely resolved, with PRBCs Atrial fibrillation with rapid ventricular response Bilateral pleural effusions Small pericardial effusion EGD yesterday showed no source of bleed gallbladder u/s negative for liver, GB, pancreas, kidney pathologies ???CT abd/pelvis, states she had Colon and was told she is good for 3 years advance diet as tolerated -will start soft diet continue to hold blood thinners Follow hgb, transfuse as needed. Covid negative VQ scan, reviewed showing no signs of PE A. fib managed by cardiology Supervisory-Addendum Brief Verification & Attestation Participated in pt care: history, MDM, physical Personally performed: exam, history, MDM, supervision of care Care discussed with: Medical Student Procedures: n/a Verification and Attestation of Medical Student E/M Service A medical student performed and documented this service. I then reviewed and verified all information documented by the medical student and made modifications to such information, when appropriate. I personally performed a physical exam, medical decision making and then discussed any differences between the notes and made revisions as necessary to create one note. Ganga Holliday , 12/31/20 , 13:44 FRIDA POWELL MED STUDENT Dec 31, 2020 09:15 GANGA HOLLIDAY DO Dec 31, 2020 13:44
--- NOTE | 2020-12-31 09:40 | Cardiology Progress Note ---
Progress Note-Cardiology Events since last exam Date Seen by Provider: Dec 31, 2020 Time Seen by Provider: 09:35 Events since last exam I am seeing her for atrial fibrillation. Her abdominal pain has improved. She denies chest pain, dyspnea at rest, palpitations, syncope, or ankle edema. Certain portions of this document may have been dictated utilizing voice recognition technology. Inherent to this technology, typographical and grammatical errors may exist. As much as I am diligent to identify and correct these mistakes, some errors may remain in the document. Vitals Last set of Vitals Signs Vital Signs 12/30/20 12/31/20 14:45 08:00 Temp 36.4 Pulse 87 Resp 19 B/P (MAP) 127/69 Pulse Ox 90 O2 Delivery Room Air O2 Flow Rate 5 Labs Labs Laboratory Tests 12/31/20 05:28 Exam Vital Signs Vital Signs Date Time Temp Pulse Resp B/P (MAP) Pulse Ox O2 Delivery O2 Flow Rate FiO2 12/31/20 08:00 36.4 87 19 127/69 90 Room Air 12/30/20 14:45 5 Physical Exam General: Alert. No acute distress. She is obese. Eye: No xanthelasma. HENT: Normocephalic. Neck: Jugular venous pressure does not appear elevated. Respiratory: Lungs are clear to auscultation. Respirations are non-labored. Breath sounds are equal. Symmetrical chest wall expansion. Cardiovascular: Normal rate. Irregular rhythm. No murmur. No gallop. No edema. Gastrointestinal: Soft. Normal bowel sounds. Skin: Warm. Dry. Neurologic: Alert and oriented to person, place, time. Cranial nerves 3-11 grossly intact. Psychiatric: Cooperative. Appropriate mood & affect. Labs Laboratory Tests Test 12/30/20 11:37 12/31/20 05:28 Range/Units SARS-CoV-2 RNA (RT-PCR) Not Detected Not Detecte White Blood Count 5.2 4.3-11.0 10^3/uL Red Blood Count 3.21 L 3.80-5.11 10^6/uL Hemoglobin 8.8 L 11.5-16.0 g/dL Hematocrit 30 L 35-52 % Mean Corpuscular Volume 94 80-99 fL Mean Corpuscular Hemoglobin 27 25-34 pg Mean Corpuscular Hemoglobin Concent 29 L 32-36 g/dL Red Cell Distribution Width 16.6 H 10.0-14.5 % Platelet Count 348 130-400 10^3/uL Mean Platelet Volume 9.2 9.0-12.2 fL Immature Granulocyte % (Auto) 1 % Neutrophils (%) (Auto) 73 42-75 % Lymphocytes (%) (Auto) 15 12-44 % Monocytes (%) (Auto) 6 0-12 % Eosinophils (%) (Auto) 5 0-10 % Basophils (%) (Auto) 0 0-10 % Neutrophils # (Auto) 3.8 1.8-7.8 10^3/uL Lymphocytes # (Auto) 0.8 L 1.0-4.0 10^3/uL Monocytes # (Auto) 0.3 0.0-1.0 10^3/uL Eosinophils # (Auto) 0.2 0.0-0.3 10^3/uL Basophils # (Auto) 0.0 0.0-0.1 10^3/uL Immature Granulocyte # (Auto) 0.0 0.0-0.1 10^3/uL Sodium Level 135 135-145 MMOL/L Potassium Level 4.6 3.6-5.0 MMOL/L Chloride Level 106 98-107 MMOL/L Carbon Dioxide Level 19 L 21-32 MMOL/L Anion Gap 10 5-14 MMOL/L Blood Urea Nitrogen 14 7-18 MG/DL Creatinine 1.02 0.60-1.30 MG/DL Estimat Glomerular Filtration Rate 52 BUN/Creatinine Ratio 14 Glucose Level 83 70-105 MG/DL Calcium Level 9.3 8.5-10.1 MG/DL Phosphorus Level 3.1 2.3-4.7 MG/DL Magnesium Level 2.2 1.6-2.4 MG/DL Diagnosis/Problems Diagnosis/Problems (1) Permanent atrial fibrillation Assessment & Plan: Heart rates now improved on metoprolol. On 12/30 I increased the dose of metoprolol succinate to 100 mg daily. She had been taking 50 mg daily at home. Her rivaroxaban is still on hold. I have asked the nurse to check with surgery to see when she can restart this medication. (2) Coronary artery disease without angina pectoris Assessment & Plan: She is not having any angina at this point in time and there are no ischemic changes on her electrocardiogram. Given her acute on chronic anemia coupled with previous upper gastrointestinal hemorrhage, I would suggest that the patient stop taking aspirin permanently. We will resume rivaroxaban for the atrial fibrillation when able. Rivaroxaban does have data on reducing cardiac events. Her beta-ileana has been resumed. Her LDL level is elevated. She refused to take statin medication. I started her on ezetimibe. (3) Primary hypertension Assessment & Plan: She is normotensive on the current dose of beta-ileana which is twice as much as what she was taking at home. I would suggest we continue to hold the lisinopril she was taking at home. She may not need to resume lisinopril at the time of discharge. (4) Mixed hyperlipidemia Assessment & Plan: Her LDL level is elevated. She has known coronary artery disease. She is now taking ezetimibe which she should be discharged with. She refuses to take statin medication due to previous side effects. (5) Pulmonary hypertension Assessment & Plan: Etiology unclear. Some of this could be related to her morbid obesity. Pulmonary embolism would be very unlikely since she was taking rivaroxaban for atrial fibrillation at home. She did undergo a ventilation/perfusion scan that was negative for pulmonary emboli. The p ulmonary hypertension will need to be followed longitudinally by her regular outpatient bookkeeper at the outside facility following discharge. (6) Anemia Assessment & Plan: As above, given the acute on chronic anemia coupled with previous gastrointestinal hemorrhages, I would suggest stopping her low strength aspirin and just continue rivaroxaban for the atrial fibrillation and coronary artery disease. (7) Morbid obesity Assessment & Plan: She needs to work on weight loss. SARAH FRANCO JR, MD Dec 31, 2020 09:40
[2020-12-31] MEDS: polyethylene glycoL POWDER 17 GM (MIRALAX) PACK PO SCH ×2 (10:55→20:45)
[2020-12-31] MEDS: meTOprolol SUCCINATE 100 MG (TOPROL XL) TAB PO SCH (10:56)
[2020-12-31] MEDS: SENNA W/DOCUSATE (SENOKOT S) TABLET PO SCH ×2 (10:56→20:45)
[2020-12-31] MEDS: LINEZOLID IVPB 300 ML IV SCH ×2 (10:57→20:59)
[2020-12-31] MEDS: PANTOPRAZOLE 40 MG (PROTONIX) VIAL IV SCH (10:57)
--- NOTE | 2020-12-31 11:07 | Physical Therapy Evaluation ---
PT Evaluation-General Medical Diagnosis Admission Date Dec 28, 2020 at 14:51 Medical Diagnosis: a-fib, abdominal pain Onset Date: Dec 28, 2020 Therapy Diagnosis Therapy Diagnosis: decreased mobility Precautions Precautions/Isolations: Fall Prevention, Standard Precautions Weight Bear Status Right Lower Extremity: Right Full Weight Bearing Left Lower Extremity: Left Full Weight Bearing Referral Physician: Dr. Gonzalez Reason for Referral: Evaluation/Treatment Medical History Pertinent Medical History: Atrial Fib, CAD, HTN Additional Medical History HLP, gastric ulcers, obesity Current History Transfer from [facility] with weakness, fever, abdominal pain Reviewed History: Yes Social History Home: Single Level Current Living Status: Alone Entry Into Home: Stairs With Railing PT Steps Into Home: 3 Prior Prior Level of Function SCALE: Activities may be completed with or without assistive devices. 1-Vykejliexo-mwnlykh completes the activity by him/herself with no assistance from a helper. 5-Set-up or Clean-up Assistance-helper sets up or cleans up; patient completes activity. [place] assists only prior to or following the activity. 4-Supervision or Touching Assistance-helper provides verbal cues and/or touching/steadying and/or contact guard assistance as patient completes activity. Assistance may be provided throughout the activity or intermittently. 3-Partial/Moderate Assistance-helper does LESS THAN HALF the effort. [place] lifts, holds or supports trunk or limbs, but provides less than half the effort. 2-Substantial/Maximal Assistance-helper does MORE THAN HALF the effort. [place] lifts or holds trunk or limbs and provides more than half the effort. 5-Lstxvwrve-toakcz does ALL the effort. Patient does none of the effort to complete the activity. Or, the assistance of 2 or more helpers is required for the patient to complete the activity. If activity was not attempted, code reason: 7-Patient Refused. 9-Not Applicable-not attempted and the patient did not perform the activity before the current illness, exacerbation or injury. 10-Not Attempted due to Environmental Limitations-(lack of equipment, weather restraints, etc.). 88-Not Attempted due to Medical Conditions or Safety Concerns. Bed Mobility: 6 Transfers (B,C,W/C): 6 Gait: 6 Stairs: 6 Indoor Mobility (Ambulation): Independent Stairs: Independent Prior Devices Use: Walker Prior Device Use: occasional walker or cane use around the home PT Evaluation-Current Subjective Pt. seated in chair, states she has been going back and forth to the bathroom. States she is doing better, might be going home today. Pt. declines additional ambulation at this time, states she feels good about her mobility. Pt/Family Goals home Objective Patient Orientation: Person, Place, Time, Situation ROM/Strength ROM Upper Extremities WFL ROM Lower Extremities WFL Strength Upper Extremities WFL Strength Lower Extremities Grossly 4/5 (B) hip, knee, ankle Integumentary/Posture Integumentary grossly intact Bowel Incontinence: No Bladder Incontinence: No Posture generally upright Neuromuscular (Tone, Coordination, Reflexes) unremarkable Sensory Vision: Wears Glasses Hearing: Functional Sensation Right Upper Extremit: Intact Sensation Left Upper Extremity: Intact Sensation Right Lower Extremit: Intact Sensation Left Lower Extremity: Intact Transfers Sit to Stand (QC): 4 SBA with sit to stand from bedside chair Gait Mode of Locomotion: Walk Anticipated Mode of Locomotion: Walk Balance Sitting Static: Good Sitting Dynamic: Good Standing Static: Good Standing Dynamic: Good Assessment/Needs Pt. is an 85 y.o. female with mild decrease in mobility. Pt. is currently SBA with transfers, she declined additional ambulation at this time but reports she has been walking back and forth from the bathroom. Pt. had good standing balance at edge of chair. Pt. would benefit from short term PT to ensure safe mobility for return home. Rehab Potential: Good PT Short Term Goals Short Term Goals Time Frame: Jan 07, 2021 Sit to lyin Lying to sitting on side of be: 6 Sit to stand: 6 Chair/[id number]-gp-[id number] transfer: 6 Walk 10 feet: 6 Walk 50 feet with two turns: 6 PT Plan Problem List Problem List: Activity Tolerance, Functional Strength, Safety, Balance, Gait, Transfer, Bed Mobility, ROM Treatment/Plan Treatment Plan: Continue Plan of Care Treatment Plan: Bed Mobility, Education, Functional Activity Lan, Functional Strength, Gait, Safety, Therapeutic Exercise, Transfers Treatment Duration: Jan 07, 2021 Frequency: 6 times per week Estimated Hrs Per Day: .25 hour per day Patient and/or Family Agrees t: Yes Time/GCodes Time In: 944 Time Out: 954 Total Billed Treatment Time: 10 Total Billed Treatment 1, ORLIN 10' GENESIS VERDUGO PT Dec 31, 2020 11:06
[2020-12-31] MEDS ORDERED: NS IV 1000 ML 1,000 ML ONE (14:17)
[2020-12-31] MEDS ORDERED: ALPRAZolam 0.25 MG (XANAX) TAB PO PRN (22:30)
[2020-12-31] MEDS ORDERED: ALPRAZolam 0.25 MG (XANAX) TAB ONE (22:36)
[2021-01-01] MEDS: CEFEPIME INJECTION 1,000 MG in WATER (STERILE) FOR INJECTION 10 ML IV SCH ×2 (02:47→10:35)
[2021-01-01 07:09] LABS: BASOPHILS % (AUTO) 0 % (0-10); EOSINOPHILS # (AUTO) 0.2 10^3/uL (0.0-0.3); EOSINOPHILS % (AUTO) 3 % (0-10); HEMATOCRIT 29 % (35-52); HEMOGLOBIN 8.7 g/dL (11.5-16.0); LYMPHOCYTES % (AUTO) 14 % (12-44); MEAN CORPUSCULAR HEMOGLOBIN 27 pg (25-34); MEAN CORPUSCULAR HGB CONC 30 g/dL (32-36); MEAN CORPUSCULAR VOLUME 91 fL (80-99); MEAN PLATELET VOLUME 8.8 fL (9.0-12.2); MONOCYTES # (AUTO) 0.6 10^3/uL (0.0-1.0); MONOCYTES % (AUTO) 9 % (0-12); NEUTROPHILS % (AUTO) 73 % (42-75); PLATELET COUNT 363 10^3/uL (130-400); WHITE BLOOD COUNT 6.8 10^3/uL (4.3-11.0)
[2021-01-01 07:37] LABS: ALBUMIN 2.9 GM/DL (3.2-4.5); BILIRUBIN,TOTAL 0.2 MG/DL (0.1-1.0); CALCIUM 9.4 MG/DL (8.5-10.1); CREATININE SERUM 0.96 MG/DL (0.60-1.30); POTASSIUM 4.8 MMOL/L (3.6-5.0); TOTAL PROTEIN 6.3 GM/DL (6.4-8.2)
--- NOTE | 2021-01-01 07:55 | Progress Note - Hospitalist ---
Subjective HPI/CC On Admission Date Seen by Provider: Jan 01, 2021 Chief complaint: Fever of unknown origin with weakness with abdominal pain History of present illness: This is an 85-year-old white female clinic patient of [facility] who presented to the [facility] ER with severe weakness and fever. Covid was negative. No evidence of UTI with a recent history of that. Atrial fibrillation with rapid ventricular response requiring Cardizem drip upon arrival to the ICU. Elevated D-dimer will require VQ scan since CT angiogram cannot be completed due to elevated creatinine. Patient has a lot of complex medical problems and at age 85 she has high risk for decompensation. Her daughter is at the bedside. Cardiology will be consulted. Dr. Alejandro consulted placed on proton pump inhibitor and will transfuse if necessary. Objective Exam Vital Signs Vital Signs Date Time Temp Pulse Resp B/P (MAP) Pulse Ox O2 Delivery O2 Flow Rate FiO2 01/01/21 12:00 36.6 87 20 134/80 97 Room Air 12/31/20 10:00 5.00 5.00 Capillary Refill : Less Than 3 Seconds Results/Procedures Lab Laboratory Tests 01/01/21 06:44 Patient resulted labs reviewed. Assessment/Plan Assessment and Plan Assess & Plan/Chief Complaint Assessment: Fever due to bilateral pneumonia with pleural effusions Severe anemia requiring transfusion History of GI bleeds Atrial fibrillation with rapid ventricular response Plan: Monitor hemoglobin EGD revealed no source of bleeding Appreciate cardiology Antibiotics to continue Telemetry to PARISH GOLDSTEIN DO Jan 01, 2021 07:55
[2021-01-01] MEDS: polyethylene glycoL POWDER 17 GM (MIRALAX) PACK PO SCH (08:42)
[2021-01-01] MEDS: SENNA W/DOCUSATE (SENOKOT S) TABLET PO SCH (08:42)
--- NOTE | 2021-01-01 08:56 | Progress Note - Surgery ---
FRIDA POWELL MED STUDENT 01/01/21 0856: Subjective Date Seen by a Provider: Jan 01, 2021 Time Seen by a Provider: 08:00 Subjective/Events-last exam surgery consult for:abdominal pain/anemia Patient is sitting comfortably in a chair. She states she feels much better and denies abdominal pain. She complains of mild abdominal tenderness, bloating and weakness. She becomes SOB with exertion such as getting up to go to the bathroom. She is tolerating her diet and denies N/V. She is having diarrhea like BM and denies blood in stool. Review of Systems General: No Fatigue, No Malaise HEENT: No Head Aches, No Visual Changes Pulmonary: Dyspnea; No Cough Cardiovascular: No: Chest Pain, Palpitations, Orthopnea Gastrointestinal: Abdominal Pain, Diarrhea; No: Nausea, Vomiting Genitourinary: No Dysuria, No Frequency Musculoskeletal: No: neck pain, back pain Neurological: Weakness; No: Confusion Objective Exam Vital Signs Date Time Temp Pulse Resp B/P (MAP) Pulse Ox O2 Delivery O2 Flow Rate FiO2 01/01/21 08:00 36.2 91 20 139/92 96 Room Air 01/01/21 03:28 36.3 67 18 127/74 97 Room Air 12/31/20 23:59 36.4 89 18 127/85 96 Room Air 12/31/20 20:00 Room Air 12/31/20 20:00 36.3 98 18 131/78 96 Room Air 12/31/20 16:00 36.4 91 18 130/84 97 Room Air 12/31/20 11:57 36.8 84 16 127/64 100 Room Air 12/31/20 10:00 36.4 87 19 127/69 90 Room Air 5.00 5.00 12/31/20 09:00 36.4 87 19 127/69 90 Room Air 5.00 5.00 I & O 01/01/21 07:00 Intake Total 2410 ml Output Total 600 ml Balance 1810 ml Capillary Refill : Less Than 3 Seconds General Appearance: No Apparent Distress, WD/WN, Chronically ill, Obese HEENT: PERRL/EOMI Neck: Non Tender, Supple Respiratory: Lungs Clear, Normal Breath Sounds Cardiovascular: Irregularly Irregular Gastrointestinal: normal bowel sounds, non tender, soft, distended (mild, most likley more to do with body habitus) Extremity: Non Tender, No Calf Tenderness, Other (mild leg pitting edema) Neurologic/Psychiatric: Alert, Oriented x3, No Motor/Sensory Deficits, Normal Mood/Affect, carburetor rebuilder II-XII Norm as Tested Skin: Normal Color, Warm/Dry Lymphatic: No Adenopathy Results Lab Laboratory Tests 01/01/21 06:44: White Blood Count 6.8, Red Blood Count 3.22L, Hemoglobin 8.7L, Hematocrit 29L, Mean Corpuscular Volume 91, Mean Corpuscular Hemoglobin 27, Mean Corpuscular Hemoglobin Concent 30L, Red Cell Distribution Width 16.4H, Platelet Count 363, Mean Platelet Volume 8.8L, Immature Granulocyte % (Auto) 1, Neutrophils (%) (Auto) 73, Lymphocytes (%) (Auto) 14, Monocytes (%) (Auto) 9, Eosinophils (%) (Auto) 3, Basophils (%) (Auto) 0, Neutrophils # (Auto) 5.0, Lymphocytes # (Auto) 1.0, Monocytes # (Auto) 0.6, Eosinophils # (Auto) 0.2, Basophils # (Auto) 0.0, Immature Granulocyte # (Auto) 0.1, Sodium Level 137, Potassium Level 4.8, Chlo ride Level 108H, Carbon Dioxide Level 19L, Anion Gap 10, Blood Urea Nitrogen 12, Creatinine 0.96, Estimat Glomerular Filtration Rate 56, BUN/Creatinine Ratio 13, Glucose Level 91, Calcium Level 9.4, Corrected Calcium 10.3H, Total Bilirubin 0.2, Aspartate Amino Transf (AST/SGOT) 18, Alanine Aminotransferase (ALT/SGPT) 14, Alkaline Phosphatase 78, Total Protein 6.3L, Albumin 2.9L Microbiology 12/28/20 Blood Culture - Preliminary, Resulted No growth 12/28/20 MRSA Screen - Final, Complete MRSA not isolated Assessment/Plan Assessment/Plan Assessment/Plan Fever of unknown origin - resolved Epigastric Abdominal pain - no source found Anemia with history of GI bleeds - stable, acutely resolved, s/p PRBCs Atrial fibrillation with rapid ventricular response Bilateral pleural effusions Small pericardial effusion hx of HTN, CAD, diverticula, [place]'s esophagus Plan is to discharge either today or tomorrow. EGD yesterday showed no source of bleed gallbladder u/s negative for liver, GB, pancreas, kidney pathologies tolerating soft diet continue to hold blood thinners Follow hgb, transfuse as needed. Covid negative VQ scan, reviewed showing no signs of PE A. fib managed by cardiology BEBETO SAINI DO 01/01/21 1701: Supervisory-Addendum Brief Verification & Attestation Participated in pt care: other (pt gone before I rounded) Personally performed: other (pt gone before I rounded) Care discussed with: Medical Student Procedures: n/a pt gone before I rounded FRIDA POWELL MED STUDENT Jan 01, 2021 08:56 BEBETO SAINI DO Jan 01, 2021 17:01
[2021-01-01] MEDS: LINEZOLID IVPB 300 ML IV SCH (09:00)
[2021-01-01] MEDS: PANTOPRAZOLE 40 MG (PROTONIX) VIAL IV SCH (09:00)
[2021-01-01] MEDS: meTOprolol SUCCINATE 100 MG (TOPROL XL) TAB PO SCH (09:00)
--- NOTE | 2021-01-01 10:33 | Cardiology Progress Note ---
Progress Note-Cardiology Events since last exam Date Seen by Provider: Jan 01, 2021 Time Seen by Provider: 10:32 Events since last exam I am seeing her for atrial fibrillation and hypertension. Her abdominal pain has resolved. She denies chest pain, dyspnea at rest, palpitations, syncope or ankle edema. She feels ready to go home. Certain portions of this document may have been dictated utilizing voice recog nition technology. Inherent to this technology, typographical and grammatical errors may exist. As much as I am diligent to identify and correct these mistakes, some errors may remain in the document. Vitals Last set of Vitals Signs Vital Signs 12/31/20 01/01/21 10:00 08:00 Temp 36.2 Pulse 91 Resp 20 B/P (MAP) 139/92 Pulse Ox 96 O2 Delivery Room Air O2 Flow Rate 5.00 5.00 Labs Labs Laboratory Tests 01/01/21 06:44 Exam Vital Signs Vital Signs Date Time Temp Pulse Resp B/P (MAP) Pulse Ox O2 Delivery O2 Flow Rate FiO2 01/01/21 08:00 36.2 91 20 139/92 96 Room Air 12/31/20 10:00 5.00 5.00 Physical Exam General: Alert. No acute distress. She is obese. Eye: No xanthelasma. HENT: Normocephalic. Neck: Jugular venous pressure does not appear elevated. Respiratory: Lungs are clear to auscultation. Respirations are non-labored. Breath sounds are equal. Symmetrical chest wall expansion. Cardiovascular: Normal rate. Irregular rhythm. No murmur. No gallop. No edema. Gastrointestinal: Soft. Normal bowel sounds. Skin: Warm. Dry. Neurologic: Alert and oriented to person, place, time. Cranial nerves 3-11 grossly intact. Psychiatric: Cooperative. Appropriate mood & affect. Labs Laboratory Tests Test 01/01/21 06:44 Range/Units White Blood Count 6.8 4.3-11.0 10^3/uL Red Blood Count 3.22 L 3.80-5.11 10^6/uL Hemoglobin 8.7 L 11.5-16.0 g/dL Hematocrit 29 L 35-52 % Mean Corpuscular Volume 91 80-99 fL Mean Corpuscular Hemoglobin 27 25-34 pg Mean Corpuscular Hemoglobin Concent 30 L 32-36 g/dL Red Cell Distribution Width 16.4 H 10.0-14.5 % Platelet Count 363 130-400 10^3/uL Mean Platelet Volume 8.8 L 9.0-12.2 fL Immature Granulocyte % (Auto) 1 % Neutrophils (%) (Auto) 73 42-75 % Lymphocytes (%) (Auto) 14 12-44 % Monocytes (%) (Auto) 9 0-12 % Eosinophils (%) (Auto) 3 0-10 % Basophils (%) (Auto) 0 0-10 % Neutrophils # (Auto) 5.0 1.8-7.8 10^3/uL Lymphocytes # (Auto) 1.0 1.0-4.0 10^3/uL Monocytes # (Auto) 0.6 0.0-1.0 10^3/uL Eosinophils # (Auto) 0.2 0.0-0.3 10^3/uL Basophils # (Auto) 0.0 0.0-0.1 10^3/uL Immature Granulocyte # (Auto) 0.1 0.0-0.1 10^3/uL Sodium Level 137 135-145 MMOL/L Potassium Level 4.8 3.6-5.0 MMOL/L Chloride Level 108 H 98-107 MMOL/L Carbon Dioxide Level 19 L 21-32 MMOL/L Anion Gap 10 5-14 MMOL/L Blood Urea Nitrogen 12 7-18 MG/DL Creatinine 0.96 0.60-1.30 MG/DL Estimat Glomerular Filtration Rate 56 BUN/Creatinine Ratio 13 Glucose Level 91 70-105 MG/DL Calcium Level 9.4 8.5-10.1 MG/DL Corrected Calcium 10.3 H 8.5-10.1 MG/DL Total Bilirubin 0.2 0.1-1.0 MG/DL Aspartate Amino Transf (AST/SGOT) 18 5-34 U/L Alanine Aminotransferase (ALT/SGPT) 14 0-55 U/L Alkaline Phosphatase 78 40-136 U/L Total Protein 6.3 L 6.4-8.2 GM/DL Albumin 2.9 L 3.2-4.5 GM/DL Diagnosis/Problems Diagnosis/Problems (1) Permanent atrial fibrillation Assessment & Plan: Heart rates heart rates improved on the higher dose of metoprolol. I recommend she be discharged with metoprolol succinate 100 mg once a day. She was taking 50 mg once daily at home. She should also be discharged on her rivaroxaban for stroke prophylaxis. I have asked her to follow-up with her regular outside semiconductor processing group leader after discharge. She does not need to see me in follow-up since she has an outside semiconductor processing group leader. (2) Coronary artery disease without angina pectoris Assessment & Plan: She is not having any angina at this point in time and there are no ischemic changes on her electrocardiogram. Given her acute on chronic anemia coupled with previous upper gastrointestinal hemorrhage, I would suggest that the patient stop taking aspirin permanently. Continue rivaroxaban which she had been taking for atrial fibrillation. Her beta-ileana has been resumed. Her LDL level is elevated. She refuses to take statin medications due to previous side effects. I started her on ezetimibe. I recommend she be discharged on ezetimibe. As above, I recommend she follow-up with her regular semiconductor processing group leader after discharge. (3) Primary hypertension Assessment & Plan: Blood pressure remains under good control on the higher dose of metoprolol. I would suggest we continue to hold the lisinopril she was taking at home. She may not need to resume lisinopril at the time of discharge. (4) Mixed hyperlipidemia Assessment & Plan: Her LDL level is elevated. She has known coronary artery disease. She is now taking ezetimibe which she should be discharged with. She refuses to take statin medication due to previous side effects. (5) Pulmonary hypertension Assessment & Plan: Etiology unclear. Some of this could be related to her morbid obesity. Pulmonary embolism would be very unlikely since she was taking rivaroxaban for atrial fibrillation at home. She did undergo a ventilation/perfusion scan that was negative for pulmonary emboli. The pulmonary hypertension will need to be followed longitudinally by her regular outpatient semiconductor processing group leader at the outside facility following discharge. (6) Anemia Assessment & Plan: As above, given the acute on chronic anemia coupled with previous gastrointestinal hemorrhages, I would suggest stopping her low strength aspirin and just continue rivaroxaban for the atrial fibrillation and coronary artery disease. (7) Morbid obesity Assessment & Plan: She needs to work on weight loss. SARAH FRANCO JR, MD Jan 01, 2021 10:33
[2021-01-01] MEDS ORDERED: LINE600T12 PO ×2 (13:22→13:24)
[2021-01-01] MEDS ORDERED: MTP100TCR PO ×2 (13:22→13:24)
[2021-01-01] MEDS ORDERED: PANT40TA2 PO ×2 (13:22→13:24)
[2021-01-01] MEDS ORDERED: CEFD300C3 PO ×2 (13:22→13:24)
--- NOTE | 2021-01-01 13:25 | Discharge Summary ---
Discharge Summary Hospital Course Was the Problem List Reviewed?: Yes Problems/Dx: (1) Permanent atrial fibrillation (2) Coronary artery disease without angina pectoris (3) Primary hypertension (4) Mixed hyperlipidemia (5) Pulmonary hypertension (6) Anemia (7) Morbid obesity Hospital Course Date of Admission: Dec 28, 2020 at 14:51 Admission Diagnosis : Family Physician/Provider: Rahul Gonzales MD Date of Discharge: 01/01/21 Discharge Diagnosis: Fever, bilateral pneumonia, atrial fibrillation with rapid ventricular response, hypoxia, severe abdominal pain, anemia, transfusion required Hospital Course: Patient had a lengthy hospital course she was admitted from [facility] due to fever of unknown origin and severe anemia with midepigastric pain with history of GI bleeds with severe anemia requiring transfusion and EGD performed by general surgery. Patient remained stable placed on a Cardizem drip cardiology consulted. Patient was placed on empiric antibiotics which ultimately was evaluated to be bilateral basilar pneumonia. OAC held along with all anti-platelet agents. Patient had resolution of all her symptoms at time of discharge Protonix will be maintained twice daily and will monitor patient closely at discharge. Labs and Pending Lab Test: Laboratory Tests 01/01/21 06:44: White Blood Count 6.8, Red Blood Count 3.22L, Hemoglobin 8.7L, Hematocrit 29L, Mean Corpuscular Volume 91, Mean Corpuscular Hemoglobin 27, Mean Corpuscular Hemoglobin Concent 30L, Red Cell Distribution Width 16.4H, Platelet Count 363, Mean Platelet Volume 8.8L, Immature Granulocyte % (Auto) 1, Neutrophils (%) (Auto) 73, Lymphocytes (%) (Auto) 14, Monocytes (%) (Auto) 9, Eosinophils (%) (Auto) 3, Basophils (%) (Auto) 0, Neutrophils # (Auto) 5.0, Lymphocytes # (Auto) 1.0, Monocytes # (Auto) 0.6, Eosinophils # (Auto) 0.2, Basophils # (Auto) 0.0, Immature Granulocyte # (Auto) 0.1, Sodium Level 137, Potassium Level 4.8, Chloride Level 108H, Carbon Dioxide Level 19L, Anion Gap 10, Blood Urea Nitrogen 12, Creatinine 0.96, Estimat Glomerular Filtration Rate 56, BUN/Creatinine Ratio 13, Glucose Level 91, Calcium Level 9.4, Corrected Calcium 10.3H, Total Bilirubin 0.2, Aspartate Amino Transf (AST/SGOT) 18, Alanine Aminotransferase (ALT/SGPT) 14, Alkaline Phosphatase 78, Total Protein 6.3L, Albumin 2.9L Microbiology 12/28/20 Blood Culture - Preliminary, Resulted No growth 12/28/20 MRSA Screen - Final, Complete MRSA not isolated Home Meds Active Metoprolol Succinate 100 Mg Tab.er.24h 100 Mg PO DAILY Protonix (Pantoprazole Sodium) 40 Mg Tablet.dr 40 Mg PO BID Zyvox (Linezolid) 600 Mg Tablet 600 Mg PO BID Cefdinir 300 Mg Capsule 300 Mg PO BID Reported Ferrous Sulfate 325 Mg Tablet 325 Mg PO 1800 Aspirin 81 Mg Tab.chew 81 Mg PO DAILY Torsemide 20 Mg Tablet 20 Mg PO DAILY Xarelto (Rivaroxaban) 20 Mg Tablet 20 Mg PO 1800 Nitroglycerin 0.3 Mg Tab.subl 0.3 Mg SL UD PRN Metoprolol Succinate 50 Mg Tab.er.24h 50 Mg PO 1800 Dexilant (Dexlansoprazole) 60 Mg Cap.bp 60 Mg PO DAILY Lisinopril 40 Mg Tablet 40 Mg PO BID Assessment/Pt Instructions [facility] for primary care provider establishment Discharge Planning: <30 minutes discharge planning Discharge Instructions Activity as Tolerated: Yes Discharge Physical Examination Vital Signs Vital Signs Date Time Temp Pulse Resp B/P (MAP) Pulse Ox O2 Delivery O2 Flow Rate FiO2 01/01/21 12:00 36.6 87 20 134/80 97 Room Air 12/31/20 10:00 5.00 5.00 General Appearance: No Apparent Distress, WD/WN, Chronically ill Allergies: Coded Allergies: sulfamethoxazole (Verified Allergy, Unknown, 12/28/20) trimethoprim (Verified Allergy, Unknown, 12/28/20) Uncoded Allergies: STATIN (Allergy, Unknown, 12/28/20) Discharge Summary Date of Admission Dec 28, 2020 at 14:51 Date of Discharge Discharge Date: Jan 01, 2021 Admission Diagnosis Assessment: Fever of unknown origin Abdominal pain Severe anemia history of GI bleeds Transfusion during current hospitalization Atrial fibrillation with rapid ventricular response Bilateral pleural effusions Small pericardial effusion Plan: Empiric antibiotics after coleman culture Cardiology consult Cardizem drip Transfusion Proton pump inhibitor Dr. Alejandro consult Discharge Diagnosis Assessment: Fever due to bilateral pneumonia with pleural effusions Severe anemia requiring transfusion History of GI bleeds Atrial fibrillation with rapid ventricular response Plan: Monitor hemoglobin EGD revealed no source of bleeding Appreciate cardiology Antibiotics to continue Telemetry to DC (1) Permanent atrial fibrillation Assessment & Plan: Heart rates heart rates improved on the higher dose of m etoprolol. I recommend she be discharged with metoprolol succinate 100 mg once a day. She was taking 50 mg once daily at home. She should also be discharged on her rivaroxaban for stroke prophylaxis. I have asked her to follow-up with her regular outside brass molder helper after discharge. She does not need to see me in follow-up since she has an outside brass molder helper. (2) Coronary artery disease without angina pectoris Assessment & Plan: She is not having any angina at this point in time and there are no ischemic changes on her electrocardiogram. Given her acute on chronic anemia coupled with previous upper gastrointestinal hemorrhage, I would suggest that the patient stop taking aspirin permanently. Continue rivaroxaban which she had been taking for atrial fibrillation. Her beta-ileana has been resumed. Her LDL level is elevated. She refuses to take statin medications due to previous side effects. I started her on ezetimibe. I recommend she be discharged on ezetimibe. As above, I recommend she follow-up with her regular brass molder helper after discharge. (3) Primary hypertension Assessment & Plan: Blood pressure remains under good control on the higher dose of metoprolol. I would suggest we continue to hold the lisinopril she was taking at home. She may not need to resume lisinopril at the time of discharge. (4) Mixed hyperlipidemia Assessment & Plan: Her LDL level is elevated. She has known coronary artery disease. She is now taking ezetimibe which she should be discharged with. She refuses to take statin medication due to previous side effects. (5) Pulmonary hypertension Assessment & Plan: Etiology unclear. Some of this could be related to her morbid obesity. Pulmonary embolism would be very unlikely since she was taking rivaroxaban for atrial fibrillation at home. She did undergo a ventilation/perfusion scan that was negative for pulmonary emboli. The pulmonary hypertension will need to be followed longitudinally by her regular outpatient brass molder helper at the outside facility following discharge. (6) Anemia Assessment & Plan: As above, given the acute on chronic anemia coupled with previous gastrointestinal hemorrhages, I would suggest stopping her low strength aspirin and just continue rivaroxaban for the atrial fibrillation and coronary artery disease. (7) Morbid obesity Assessment & Plan: She needs to work on weight loss. PARISH KOHLI DO Jan 01, 2021 13:25
[2021-01-01 14:10] VITALS: BP 134/80
--- NOTE | 2021-01-02 15:17 | OPERATIVE REPORT ---
DATE OF SERVICE: 12/30/2020 PREOPERATIVE DIAGNOSES: Epigastric abdominal pain and anemia. POSTOPERATIVE DIAGNOSIS: Gastritis of cardia PROCEDURES PERFORMED: Esophagogastroduodenoscopy with biopsy of the cardia SURGEON: Elzbieta Aleajndro DO. ANESTHESIA: Per [employer] SUPER[employer]. ESTIMATED BLOOD LOSS: None. COMPLICATIONS: None. INDICATIONS FOR PROCEDURE: The patient is an 85-year-old female with anemia and epigastric abdominal pain that has been going on for approximately two months. She understands the risks and benefits of the procedure and wishes to proceed. Consent was signed in the chart. DESCRIPTION OF PROCEDURE: The patient was taken to the endoscopy suite and placed in the left lateral recumbent position. Timeout was performed. Scope was inserted in mouth, down the esophagus, stomach and into the duodenum without difficulty. There were no polyps, masses or ulcerations within the duodenum. Scope was slowly retracted back into the stomach, where it was further insufflated. Slight evidence of , which was in her known history. Scope was retroflexed noting erythematous changes in the cardia consistent with gastritis. Biopsy of the area was obtained. No active bleeding. The scope was then returned to its normal position, slowly withdrawn to distal esophagus, which had normal appearance. No polyps, masses or ulcerations. Scope was slowly retracted back until completely removed. The patient tolerated procedure well without any complications. RECOMMENDATIONS: Continue current medical therapy. Continue to monitor hemoglobin and as needed. Await biopsy results. Job ID: [id number] DocumentID: [id number] Dictated Date: 01/02/2021 08:42:27 Laboratory Scientist Date: 01/02/2021 15:16:29 Dictated By: ELZBIETA ALEJANDRO DO
== END 2021-01-01 14:35 | disposition home or self-care (01) | DRG 391 ==
LOC: ICU 14:51 → CSD 12-30 06:30 → 4TH 12-31 15:01
PROVIDERS: ADMIT Internal Medicine; ATTEND Internal Medicine
PROC: 0DB68ZX Excision of Stomach, Via Natural or Artificial Opening Endoscopic, Diagnostic (ICD-10-PCS; principal; 2020-12-30 11:45)
DX: K29.70 Gastritis, unspecified, without bleeding (principal); J18.9 Pneumonia, unspecified organism; I48.21 Permanent atrial fibrillation; N17.9 Acute kidney failure, unspecified; I13.0 Hypertensive heart and chronic kidney disease with heart failure and stage 1 through stage 4 chronic kidney disease, or unspecified chronic kidney disease; J90 Pleural effusion, not elsewhere classified; I31.3 Pericardial effusion (noninflammatory); Z68.41 Body mass index [BMI] 40.0-44.9, adult; Z20.822 Contact with and (suspected) exposure to COVID-19; D64.9 Anemia, unspecified; N18.9 Chronic kidney disease, unspecified; I50.9 Heart failure, unspecified; I25.10 Atherosclerotic heart disease of native coronary artery without angina pectoris; K21.9 Gastro-esophageal reflux disease without esophagitis; K22.70 Barrett's esophagus without dysplasia; E66.01 Morbid (severe) obesity due to excess calories; M81.0 Age-related osteoporosis without current pathological fracture; M54.9 Dorsalgia, unspecified; E78.2 Mixed hyperlipidemia; I08.3 Combined rheumatic disorders of mitral, aortic and tricuspid valves; I27.20 Pulmonary hypertension, unspecified; I25.2 Old myocardial infarction; Z95.5 Presence of coronary angioplasty implant and graft; Z79.82 Long term (current) use of aspirin; Z88.1 Allergy status to other antibiotic agents; Z88.2 Allergy status to sulfonamides
CPT/HCPCS: 36415; 71045; 76705; 80048; 80053; 80061; 81000; 83605; 83735; 83880; 84100; 84145; 85007; 85014; 85018; 85025; 85027; 85379; 86850; 86900; 86901; 86920; 87040; 87081; 87636; 93005; 93306

== ENCOUNTER 2021-05-27 17:17 | Emergency (ER) | payer MEDICARE ==
[~2021-05-27] VITALS: Ht 154 cm; Wt 92.0 kg
[~2021-05-27 17:17] MED LIST changes: +ASPI-999 PO; +DEXL60CA PO; +FERR-74 PO; +LINE600T12 PO; +LISI40TA9 PO; +METO50TA7 PO; +MTP100TCR PO; +NITR0.3T7 SL; +PANT40TA2 PO; +RIVA20TA PO; +TORS20TA3 PO
[2021-05-27 17:49] LABS: BASOPHILS % (AUTO) 0 % (0-10); EOSINOPHILS # (AUTO) 0.1 10^3/uL (0.0-0.3); EOSINOPHILS % (AUTO) 1 % (0-10); HEMATOCRIT 36 % (35-52); HEMOGLOBIN 11.4 g/dL (11.5-16.0); LYMPHOCYTES # (AUTO) 0.7 10^3/uL (1.0-4.0); LYMPHOCYTES % (AUTO) 5 % (12-44); MEAN CORPUSCULAR HEMOGLOBIN 27 pg (25-34); MEAN CORPUSCULAR HGB CONC 31 g/dL (32-36); MEAN CORPUSCULAR VOLUME 87 fL (80-99); MEAN PLATELET VOLUME 9.5 fL (9.0-12.2); MONOCYTES # (AUTO) 0.6 10^3/uL (0.0-1.0); MONOCYTES % (AUTO) 4 % (0-12); NEUTROPHILS # (AUTO) 12.7 10^3/uL (1.8-7.8); NEUTROPHILS % (AUTO) 90 % (42-75); PLATELET COUNT 216 10^3/uL (130-400); WHITE BLOOD COUNT 14.1 10^3/uL (4.3-11.0)
[2021-05-27 18:09] LABS: ALBUMIN 4.1 GM/DL (3.2-4.5); POTASSIUM 4.3 MMOL/L (3.6-5.0)
[2021-05-27 18:11] LABS: CALCIUM 9.4 MG/DL (8.5-10.1)
[2021-05-27 18:12] LABS: INR 1.3 (0.8-1.4); TOTAL PROTEIN 7.3 GM/DL (6.4-8.2)
[2021-05-27 18:14] LABS: BILIRUBIN,TOTAL 0.4 MG/DL (0.1-1.0)
[2021-05-27 18:15] LABS: CREATININE SERUM 1.38 MG/DL (0.60-1.30)
[2021-05-27] MEDS ORDERED: DICYCLOMINE 10 MG/ML (BENTYL) 2 ML AMP IM STA (18:22)
--- NOTE | 2021-05-27 18:22 | ED Abdominal Pain ---
General Chief Complaint: General Problems/Pain Stated Complaint: STOMACH AND KIDNEYS HURT, BLOOD IN STOOLS Nursing Triage Note: PT TO ED FOR ABDOMINAL AND KIDNEY PAIN THAT STARTED LAST WEEK. PT REPORTS SHE WAS DX WITH UTI BUT SHE FEELS WORSE. PT REPORTS FEVERS OF 101 AT HOME. PT ALSO C/O BRIGHT RED BLOOD IN STOOLS. PT BROUGHT TO ROOM 08 VIA WC. SON AT BEDSIDE. Source of Information: Patient, Family (son) Exam Limitations: No Limitations History of Present Illness Date Seen by Provider: May 27, 2021 Time Seen by Provider: 18:05 Initial Comments Patient is an 85-year-old female who presents to the emergency department today with a chief complaint of diffuse abdominal pain onset this morning, pain in her "kidneys" fever and chilling. Patient states that her symptoms started suddenly this morning. She had similar symptoms with admission to the hospital about 6 months ago. She states she sees Dr. 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 She states occasionally she has to be "cauterized" internally. She denies feeling lightheaded or dizzy. No upper respiratory congestion, no cough or shortness of breath. She is a little nauseous. She has not had any diarrhea. She does endorse bright red blood in her stools but her stools have been normal otherwise. She is currently on antibiotics, Cipro for urinary tract infection that was diagnosed on 23 May. She has had prior appendectomy and hysterectomy. She was vaccinated for COVID in April and May 2020, has not had a booster. She did take 3 Tylenol at about 4:00 this afternoon for her fever. All other review of systems reviewed and negative except as stated. Timing/Duration: 12 Hours Severity/Quality: Moderate, Aching, Cramping Location: Other (diffuse) Radiation: Back Activities at Onset: None Associated Symptoms: Back Pain, Fever/Chills, Fatigue, Nausea/Vomiting, Weakness Allergies and Home Medications Allergies Coded Allergies: sulfamethoxazole (Verified Allergy, Unknown, 12/28/20) trimethoprim (Verified Allergy, Unknown, 12/28/20) Uncoded Allergies: STATIN (Allergy, Unknown, 12/28/20) Patient Home Medication List Home Medication List Reviewed: Yes Cefdinir (Cefdinir) 300 Mg Capsule, 300 MG PO BID Prescribed by: PARISH KOHLI on 01/01/21 1324 Ferrous Sulfate (Ferrous Sulfate) 325 Mg Tablet, 325 MG PO 1800, (Reported) Entered as Reported by: GRETTA CONNER on 12/28/20 160 Linezolid (Zyvox) 600 Mg Tablet, 600 MG PO BID Prescribed by: PARISH KOHLI on 01/01/21 132 Metoprolol Succinate (Metoprolol Succinate) 100 Mg Tab.er.24h, 100 MG PO DAILY Prescribed by: PARISH KOHLI on 01/01/21 132 Metronidazole (Metronidazole) 500 Mg Tablet, 500 MG PO Q8H Prescribed by: JAYCE MATHEWS on 05/27/212028 Nitroglycerin (Nitroglycerin) 0.3 Mg Tab.subl, 0.3 MG SL UD PRN for CHEST PAIN (ANGINA), (Reported) Entered as Reported by: GRETTA CONNER on 12/28/20 160 Pantoprazole Sodium (Protonix) 40 Mg Tablet.dr, 40 MG PO BID Prescribed by: PARISH KOHLI on 01/01/21 132 Torsemide (Torsemide) 20 Mg Tablet, 20 MG PO DAILY, (Reported) Entered as Reported by: GRETTA CONNER on 12/28/20 160 Review of Systems Review of Systems Constitutional: see HPI EENTM: No Symptoms Reported Respiratory: No Symptoms Reported Cardiovascular: No Symptoms Reported, Irregular Heart Rate (chronic) Gastrointestinal: Abdomen Distended, Abdominal Pain, Blood Streaked Stools, Rectal Bleeding Genitourinary: Frequency (chronic; recent UTI) Musculoskeletal: no symptoms reported Skin: no symptoms reported Psychiatric/Neurological: No Symptoms Reported All Other Systems Reviewed Negative Unless Noted: Yes Past Sprkgal-Fciqwh-Gjtobk Hx Patient Social History Tobacco Use?: No Substance use?: No Alcohol Use?: No Pt feels they are or have been: No Immunizations Up To Date First/Initial COVID19 Vaccinat: 05/16/2020 Second COVID19 Vaccination Terry: 06/16/2020 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 SURGERY; TWO STENTS PLACED 2019. OTHERS UNABLE TO RECALL THEM ALL AT THIS TIME. 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 oz. kg; 38.00 BMI Method: General Appearance: WD/WN, no apparent distress HEENT: PERRL/EOMI Neck: full range of motion Respiratory: lungs clear, normal breath sounds, no respiratory distress, no accessory muscle use Cardiovascular: irregularly irregular Gastrointestinal: soft, abnormal bowel sounds (quiet BS), tenderness (diffuse mild tenderness) Genital/Rectal: heme positive stool (slight bit of obvious blood in MOISES; no palpable masses, no inflammes external hemorrhoids) Extremities: normal range of motion, normal inspection, normal capillary refill Neurologic/Psychiatric: alert, normal mood/affect, oriented x 3 Skin: normal color, warm/dry Focused Exam Lactate Level 05/27/21 17:32: Lactic Acid Level 2.56*H 05/27/21 21:14: Lactic Acid Level 2.11*H Lactic Acid Level Laboratory Tests Test 05/27/21 17:32 05/27/21 21:14 Lactic Acid Level 2.56 MMOL/L (0.50-2.00) *H 2.11 MMOL/L (0.50-2.00) *H Progress/Results/Core Measures Results/Orders Lab Results Laboratory Tests Test 05/27/21 17:32 05/27/21 17:36 05/27/21 18:40 05/27/21 21:14 Range/Units White Blood Count 14.1 H 4.3-11.0 10^3/uL Red Blood Count 4.16 3.80-5.11 10^6/uL Hemoglobin 11.4 L 11.5-16.0 g/dL Hematocrit 36 35-52 % Mean Corpuscular Volume 87 80-99 fL Mean Corpuscular Hemoglobin 27 25-34 pg Mean Corpuscular Hemoglobin Concent 31 L 32-36 g/dL Red Cell Distribution Width 17.2 H 10.0-14.5 % Platelet Count 216 130-400 10^3/uL Mean Platelet Volume 9.5 9.0-12.2 fL Immature Granulocyte % (Auto) 0 % Neutrophils (%) (Auto) 90 H 42-75 % Lymphocytes (%) (Auto) 5 L 12-44 % Monocytes (%) (Auto) 4 0-12 % Eosinophils (%) (Auto) 1 0-10 % Basophils (%) (Auto) 0 0-10 % Neutrophils # (Auto) 12.7 H 1.8-7.8 10^3/uL Lymphocytes # (Auto) 0.7 L 1.0-4.0 10^3/uL Monocytes # (Auto) 0.6 0.0-1.0 10^3/uL Eosinophils # (Auto) 0.1 0.0-0.3 10^3/uL Basophils # (Auto) 0.0 0.0-0.1 10^3/uL Immature Granulocyte # (Auto) 0.1 0.0-0.1 10^3/uL Neutrophils % (Manual) 84 % Lymphocytes % (Manual) 3 % Monocytes % (Manual) 6 % Eosinophils % (Manual) 2 % Basophils % (Manual) 0 % Band Neutrophils 5 % Polychromasia SLIGHT Anisocytosis MODERATE Prothrombin Time 17.0 H 12.2-14.7 SEC INR Comment 1.3 0.8-1.4 Activated Partial Thromboplast Time 38 H 24-35 SEC Sodium Level 135 135-145 MMOL/L Potassium Level 4.3 3.6-5.0 MMOL/L Chloride Level 99 98-107 MMOL/L Carbon Dioxide Level 22 21-32 MMOL/L Anion Gap 14 5-14 MMOL/L Blood Urea Nitrogen 18 7-18 MG/DL Creatinine 1.38 H 0.60-1.30 MG/DL Estimat Glomerular Filtration Rate 38 BUN/Creatinine Ratio 13 Glucose Level 155 H 70-105 MG/DL Lactic Acid Level 2.56 *H 2.11 *H 0.50-2.00 MMOL/L Calcium Level 9.4 8.5-10.1 MG/DL Corrected Calcium 9.3 8.5-10.1 MG/DL Total Bilirubin 0.4 0.1-1.0 MG/DL Aspartate Amino Transf (AST/SGOT) 17 5-34 U/L Alanine Aminotransferase (ALT/SGPT) 16 0-55 U/L Alkaline Phosphatase 76 40-136 U/L C-Reactive Protein High Sensitivity 1.16 H 0.00-0.50 MG/DL Total Protein 7.3 6.4-8.2 GM/DL Albumin 4.1 3.2-4.5 GM/DL Lipase 19 8-78 U/L Influenza Type A Antigen NEGATIVE NEGATIVE Influenza Type B Antigen NEGATIVE NEGATIVE SARS-CoV-2 RNA (RT-PCR) Not Detected Negative Urine Color YELLOW Urine Clarity CLEAR Urine pH 5.0 5-9 Urine Specific [place] 1.020 1.016-1.022 Urine Protein NEGATIVE NEGATIVE Urine Glucose (UA) NEGATIVE NEGATIVE Urine Ketones NEGATIVE NEGATIVE Urine Nitrite NEGATIVE NEGATIVE Urine Bilirubin NEGATIVE NEGATIVE Urine Urobilinogen 0.2 < = 1.0 MG/DL Urine Leukocyte Esterase NEGATIVE NEGATIVE Urine RBC (Auto) TRACE-I H NEGATIVE Urine RBC NONE /HPF Urine WBC NONE /HPF Urine Squamous Epithelial Cells 5-10 /HPF Urine Crystals NONE /LPF Urine Bacteria NEGATIVE /HPF Urine Casts NONE /LPF Urine Mucus NEGATIVE /LPF Urine Culture Indicated NO My Orders Orders - JAYCE MATHEWS MD Dicyclomine Injection (Bentyl Injection) (05/27/21 18:22) Blood Culture (05/27/21 19:13) Lactic Acid Analyzer (05/27/21 19:13) Ekg Tracing (05/27/21 19:13) Ct Abdomen/Pelvis Wo (05/27/21 19:13) Fecal Occult Bedside (05/27/21 19:21) Ns Iv 1000 Ml (Sodium Chloride 0.9%) (05/27/21 20:30) Metronidazole 500mg/100ml Ivpb (Flagyl 5 (05/27/21 20:30) Blood Culture (05/27/21 21:02) Medications Given in ED Current Medications Medications Dose Ordered Sig/Rishabh Route Start Time Stop Time Status Last Admin Dose Admin Metronidazole 100 ml @ 100 mls/hr ONCE ONCE IV 05/27/21 20:30 05/27/21 21:29 DC 05/27/21 21:18 100 MLS/HR Vital Signs/I&O 05/27/21 05/27/21 17:28 22:20 Temp 38.8 36.3 Pulse 103 85 Resp 20 12 B/P (MAP) 147/53 (84) 123/62 Pulse Ox 96 96 O2 Delivery Room Air Room Air Blood Pressure Mean: 84 Progress Progress Note #1: Time: 19:35 Progress Note Per review of the medical record of this patient from prior admission in December 2020 patient has "complicated GI history, NE with stents x2 (2015), and near-continuous Afib (diagnosed 2014) who presents with complaint of weaknes s. 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 She is not nauseated. Her CT abdomen and pelvis noncontrast shows findings concerning for enteritis. She is finishing up a course of Cipro, I am going to give her a dose of Flagyl IV here this evening and start her on 3 times daily Flagyl for the next 7 days. Her hemoglobin is good. Her renal function is decent. Her electrolytes are normal. Her abdominal exam is benign. I do not believe at this time she needs inpatient admission. I have advised her to have close follow-up with her primary care provider next week. Return precautions have been discussed. She is comfortable with the plan of care. All questions are sought and answered. Patient is stable for discharge after fluids to address the elevated lactic acid and her first dose of Flagyl. Initial ECG Impression Date: May 27, 2021 Initial ECG Impression Time: 19:24 Initial ECG Rate: 82 Initial ECG Rhythm: A Fib/Flutter Initial ECG Intervals No ST segment elevation or depression, no ectopy other than the underlying atrial fibrillation Diagnostic Imaging Diagonstic Imaging: CT Comments [facility], [place] NAME: CHENTE SUTHERLAND MED REC#: [id number] PT STATUS: REG ER : 1935 PHYSICIAN: JAYCE MATHEWS MD ADMIT DATE: 05/27/21/ER Draft Date of Exam:05/27/21 CT ABDOMEN/PELVIS WO INDICATION: History of diverticulitis. Abdominal pain and fever. EXAMINATION: CT abdomen and pelvis without contrast, 05/27/2021. All CT scans use one or more of the following dose optimizing techniques: automated exposure control, MA and/or KvP adjustment based on patient size and exam type or iterative reconstruction. FINDINGS: There is patchy atelectasis versus scarring in the visualized lung bases. There are coronary calcifications with atherosclerotic disease throughout the aorta. The abdominal viscera limited by lack of contrast. There is evidence of old granulomatous disease in the spleen. The liver and gallbladder unremarkable. Adrenal glands and pancreas are unremarkable. Kidneys slightly atrophied. Cystic lesions in the kidneys fairly simple in appearance. There is a small hiatal hernia. Thick-walled slightly prominent small bowel loops seen in the mid anterior abdomen likely due to an enteritis. No surrounding inflammation is seen. There is diverticular disease without evidence for diverticulitis. There is no ascites or free air. Degenerative findings seen throughout the spine with no acute abnormalities appreciated. IMPRESSION: Findings suspicious for mild enteritis with multiple incidental findings otherwise noted. Dictated on workstation # [id number] Dict: 05/27/211940 Trans: 05/27/211945 PJ [id number] Interpreted by: UBALDO ALMANZA MD Electronically signed by: Departure Impression Primary Impression: Abdominal pain Qualified Codes: R10.84 - Generalized abdominal pain Additional Impressions: Enteritis Chronic anticoagulation Atrial fibrillation Qualified Codes: I48.91 - Unspecified atrial fibrillation Chronic kidney disease Qualified Codes: N18.9 - Chronic kidney disease, unspecified Disposition: 01 HOME, SELF-CARE Condition: Stable Departure-Patient Inst. Decision time for Depature: 20:27 Referrals: REN WEST MD (PCP/Family) Primary Care Physician Patient Instructions: [id number] Add. Discharge Instructions: Please drink plenty of fluids to stay well-hydrated. You will need to take the Flagyl, 500 mg, 3 times daily for the next 7 days. You have been given your first dose in the emergency department this evening. Take extra strength Tylenol, only 2 tablets at a time every 6 hours as needed for fever greater than 100.4. If you have worsening pain, pass more, concerning amounts of blood in your stool, have nausea or other concerning emergent complaints please come back to the emergency room for reevaluation. Please follow-up with your primary care physician early next week. Scripts Metronidazole (Metronidazole) 500 Mg Tablet 500 MG PO TID for 7 Days, #21 TAB Prov: JAYCE MATHEWS MD 05/27/21 JAYCE MATHEWS MD May 27, 2021 18:22
[2021-05-27 18:26] LABS: ANISOCYTOSIS MODERATE; BAND NEUTROPHILS 5 %; BASOPHILS % (MANUAL) 0 %; EOSINOPHILS % (MANUAL) 2 %; LYMPHOCYTES % (MANUAL) 3 %; MONOCYTES % (MANUAL) 6 %; NEUTROPHILS % (MANUAL) 84 %; POLYCHROMASIA SLIGHT
[2021-05-27 18:47] LABS: BILIRUBIN,URINE NEGATIVE (NEGATIVE); CLARITY,URINE CLEAR; COLOR,URINE YELLOW; GLUCOSE, URINE (UA) NEGATIVE (NEGATIVE); KETONES,URINE NEGATIVE (NEGATIVE); LEUKOCYTE ESTERASE ,URINE NEGATIVE (NEGATIVE); NITRITE,URINE NEGATIVE (NEGATIVE); PROTEIN,URINE NEGATIVE (NEGATIVE)
[2021-05-27 18:54] LABS: BACTERIA,URINE NEGATIVE /HPF
--- NOTE | 2021-05-27 19:47 | Diagnostic Imaging Report ---
INDICATION: History of diverticulitis. Abdominal pain and fever. EXAMINATION: CT abdomen and pelvis without contrast, 05/27/2021. All CT scans use one or more of the following dose optimizing techniques: automated exposure control, MA and/or KvP adjustment based on patient size and exam type or iterative reconstruction. FINDINGS: There is patchy atelectasis versus scarring in the visualized lung bases. There are coronary calcifications with atherosclerotic disease throughout the aorta. The abdominal viscera limited by lack of contrast. There is evidence of old granulomatous disease in the spleen. The liver and gallbladder unremarkable. Adrenal glands and pancreas are unremarkable. Kidneys slightly atrophied. Cystic lesions in the kidneys fairly simple in appearance. There is a small hiatal hernia. Thick-walled slightly prominent small bowel loops seen in the mid anterior abdomen likely due to an enteritis. No surrounding inflammation is seen. There is diverticular disease without evidence for diverticulitis. There is no ascites or free air. Degenerative findings seen throughout the spine with no acute abnormalities appreciated. IMPRESSION: Findings suspicious for mild enteritis with multiple incidental findings otherwise noted. Dictated by: Dictated on workstation # [id number]
[2021-05-27] MEDS ORDERED: METR-145 PO ×2 (20:29→22:29)
[2021-05-27] MEDS ORDERED: NS IV 1000 ML 1,000 ML IV SCH (20:30)
[2021-05-27] MEDS ORDERED: metroNIDAZOLE 500MG/100ML IVPB 100 ML IV ONE (20:30)
[2021-05-27 22:20] VITALS: BP 123/62
== END 2021-05-27 22:28 | disposition home or self-care (01) ==
LOC: EDUNIT# 17:17 → ER 17:23
DX: K52.9 Noninfective gastroenteritis and colitis, unspecified (principal); I48.91 Unspecified atrial fibrillation; I12.9 Hypertensive chronic kidney disease with stage 1 through stage 4 chronic kidney disease, or unspecified chronic kidney disease; N18.9 Chronic kidney disease, unspecified; I25.2 Old myocardial infarction; Z20.822 Contact with and (suspected) exposure to COVID-19; Z79.01 Long term (current) use of anticoagulants
CPT/HCPCS: 36415; 74176; 80053; 81000; 82274; 83605; 83690; 85007; 85027; 85610; 85730; 86141; 87040; 87635; 87636; 87804; 93005